=== PATIENT | male | born 1940 | race Caucasian/White ===

== ENCOUNTER 2020-07-05 11:40 | Emergency (ER) | payer MEDICARE, MEDICAID ==
[2020-07-05] MEDS ORDERED: Sodium Chloride 0.9% 10 ML Syringe FLUSH PRN (12:06)
--- NOTE | 2020-07-05 12:06 | EDM.PDOC ---
ED HPI GENERAL MEDICAL PROBLEM - General Chief Complaint: General Stated Complaint: [facility] Time Seen by Provider: 07/05/20 11:48 Source of Information: Reports: Patient, Intermediate Records (report from [facility]), RN Notes Reviewed History Limitations: Reports: No Limitations - History of Present Illness INITIAL COMMENTS - FREE TEXT/NARRATIVE: Patient is a 79-year-old male who presents to the ED for the evaluation of a fall. Patient was brought by [place] ambulance service, and resides at [facility] in [place]. Patient is not a great historian, he does provide some information, like he fell in the elevator, but he denies any sort of ongoing illness that he has been having. Report from [facility] staff states that he has had generalized weakness for the past couple weeks, and has been going to physical therapy for this. He did collapse or fall in the elevator today, but is denying pain anywhere, and is not on any sort of blood thinners, and he was not known to have hit his head. Staff note that he is normally alert and oriented x3. On initial exam, the patient does answer questions when prompted, sometimes he answers questions correctly, and other times he answers with a complete off the cuff answer. 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 He thinks his legs just gave out on him today, noted it was a little bit harder to get up off the floor. He notes lingering problems with his balance, as he has a history of seizures. Patient's not been known to have any fevers or chills, no cough or shortness of breath, or any sort of nausea vomiting or diarrhea. 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 ED EXAM, GENERAL - Physical Exam Exam: See Below Exam Limited By: No Limitations General Appearance: Alert, WD/WN, No Apparent Distress Ears: Normal External Exam Nose: Normal Inspection Throat/Mouth: Normal Inspection Head: Atraumatic, Normocephalic Neck: Normal Inspection Respiratory/Chest: No Respiratory Distress, Lungs Clear, Normal Breath Sounds, No Accessory Muscle Use, Chest Non-Tender Cardiovascular: Normal Peripheral Pulses, Regular Rate, Rhythm, No Murmur Peripheral Pulses: 2+: Radial (L), Radial (R) Extremities: Normal Inspection, Normal Capillary Refill Neurological: Alert, Oriented, Sensory/Motor Deficit (decreased poultry cleaner strength bilaterally, overall generalized weakness noted) Psychiatric: Normal Affect, Normal Mood Skin Exam: Warm, Dry, Intact, Normal Color, No Rash EKG INTERPRETATION EKG Date: 07/05/20 Time: 12:36 Rhythm: NSR (sinus bradycardia) Rate (Beats/Min): 52 [place]: Normal P-Wave: Present (1 AV block) QRS: Normal ST-T: Other (T-wave flattening in lead I and inverted in aVL) QT: Normal Comparison: NA - No Prior EKG EKG Interpretation Comments: No obvious ischemia or acute ST changes noted, reviewed by myself and Dr. Lan. Course - Vital Signs Last Recorded V/S: Last Vital Signs Temp 98.3 F 07/05/20 11:47 Pulse 62 07/05/20 11:47 Resp 18 07/05/20 11:47 BP 137/75 07/05/20 11:47 Pulse Ox 94 L 07/05/20 11:47 - Orders/Labs/Meds Orders: Active Orders 24 hr Category Date Time Status EKG Documentation Completion [RC] STAT Care 07/05/20 11:56 Active Peripheral IV Care [RC] . DIRECTED Care 07/05/20 12:07 Active Chest 2V [CR] Stat Exams 07/05/20 11:55 Taken Sodium Chloride 0.9% [Saline Flush] Med 07/05/20 12:06 Active 10 ml FLUSH ASDIRECTED PRN Peripheral IV Insertion Adult [OM.PC] Routine Oth 07/05/20 12:07 Ordered Medication Orders Sodium Chloride (Saline Flush) 10 ml FLUSH ASDIRECTED PRN PRN Reason: Keep Vein Open Labs: Laboratory Tests 07/05/20 07/05/20 07/05/20 Range/Units 12:23 12:23 13:29 WBC 3.88 L (4.23-9.07) K/mm3 RBC 4.27 L (4.63-6.08) M/mm3 Hgb 12.7 L (13.7-17.5) gm/dl Hct 39.6 L (40.1-51.0) % MCV 92.7 H (79.0-92.2) fl MCH 29.7 (25.7-32.2) pg MCHC 32.1 L (32.2-35.5) g/dl RDW Std Deviation 47.5 H (35.1-43.9) fL Plt Count 180 (163-337) K/mm3 MPV 11.6 (9.4-12.3) fl Neut % (Auto) 66.2 (34.0-67.9) % Lymph % (Auto) 19.1 L (21.8-53.1) % Gibson % (Auto) 11.3 (5.3-12.2) % Eos % (Auto) 2.8 (0.8-7.0) Baso % (Auto) 0.3 (0.1-1.2) % Neut # (Auto) 2.57 (1.78-5.38) K/mm3 Lymph # (Auto) 0.74 L (1.32-3.57) K/mm3 Gibson # (Auto) 0.44 (0.30-0.82) K/mm3 Eos # (Auto) 0.11 (0.04-0.54) K/mm3 Baso # (Auto) 0.01 (0.01-0.08) K/mm3 Sodium 139 (136-145) mEq/L Potassium 4.3 (3.5-5.1) mEq/L Chloride 104 (98-107) mEq/L Carbon Dioxide 30 (21-32) mEq/L Anion Gap 9.3 (5-15) BUN 16 (7-18) mg/dL Creatinine 0.9 (0.7-1.3) mg/dL Est Cr Clr Drug Dosing 65.97 mL/min Estimated GFR (MDRD) > 60 (>60) mL/min BUN/Creatinine Ratio 17.8 (14-18) Glucose 92 (83-115) mg/dL Calcium 8.6 (8.5-10.1) mg/dL Magnesium 1.8 (1.8-2.4) mg/dl Total Bilirubin 0.3 (0.2-1.0) mg/dL AST 23 (15-37) U/L ALT 25 (16-63) U/L Alkaline Phosphatase 120 H (46-116) U/L Troponin I < 0.017 (0.00-0.056) ng/mL Total Protein 6.3 L (6.4-8.2) g/dl Albumin 3.3 L (3.4-5.0) g/dl Globulin 3.0 gm/dL Albumin/Globulin Ratio 1.1 (1-2) Urine Color Yellow (Yellow) Urine Appearance Clear (Clear) Urine pH 7.0 (5.0-8.0) Ur Specific [place] 1.020 (1.005-1.030) Urine Protein Negative (Negative) Urine Glucose (UA) Negative (Negative) Urine Ketones Negative (Negative) Urine Occult Blood Trace-intact H (Negative) Urine Nitrite Negative (Negative) Urine Bilirubin Negative (Negative) Urine Urobilinogen 1.0 (0.2-1.0) Ur Leukocyte Esterase Negative (Negative) Urine RBC 5-10 H (0-5) /hpf Urine WBC 0-5 (0-5) /hpf Ur Squamous Epith Cells 0-5 (0-5) /hpf Urine Bacteria Few (FEW) /hpf Urine Mucus Rare (FEW) /hpf Meds: Medications Generic Name Dose Route Start Last Admin Trade Name Freq PRN Reason Stop Dose Admin Sodium Chloride 10 ml 07/05/20 12:06 Saline Flush FLUSH ASDIRECTED PRN Keep Vein Open - Re-Assessments/Exams Free Text/Narrative Re-Assessment/Exam: 07/05/20 12:14 Patient presents to the ED for the evaluation of a fall, and generalized weakness. Laboratory evaluation be obtained to rule out any electrolyte abnormalities, patient will have a chest x-ray, EKG, along with a urinalysis to rule out further possible infectious processes that would be causing increased weakness. I do believe on exam however the patient is suffering from generalized deconditioning, or aging. 07/05/20 13:07 Chest x-ray is negative for any acute consolidative processes like pneumonia. There is some possible mild atelectasis at the right lung base, and heart is at the upper limits of normal for size. Official radiology read is pending. X- rays were reviewed by myself and Dr. Lan. Labs are fairly unremarkable, white blood cell count is mildly low at 3.88. Metabolic panel demonstrates no electrolyte abnormalities that would be causing weakness. Trop is negative, EKG does not show any sign of acute ST changes. As stated above I do believe the patient suffering from physical deconditioning, however urinalysis is still pending at this time. 07/05/20 14:01 Urine demonstrates a trace amount of cells in his urine, which likely secondary to trauma due to the insertion of the urinary catheter. Patient will be discharged back to [facility] with general recommendations at this time. Departure - Departure Time of Disposition: 14:02 Disposition: Home, Self-Care 01 Condition: Good Clinical Impression: Generalized muscle weakness, Physical deconditioning Fall Qualifiers: Encounter type: initial encounter Qualified Code(s): W19.XXXA - Unspecified fall, initial encounter - Discharge Information *PRESCRIPTION DRUG MONITORING PROGRAM REVIEWED*: No *COPY OF PRESCRIPTION DRUG MONITORING REPORT IN PATIENT LORELEI: No Instructions: Weakness, [id number] Forms: ED Department Discharge Additional Instructions: You were evaluated in the ER today regarding your generalized weakness, and fall x1 today. An extensive work-up was done today to include lab work, chest x-ray, EKG all of this was negative. There is no sign of an infective process causing any sort of weakness or anything that would have attributed to your fall. Your fall is most likely due to physical deconditioning, and the aging process, please continue to work with PT to get stronger at this time. Please return to the ER at any time if your symptoms change or worsen. Sepsis Event Note (ED) - Evaluation Sepsis Screening Result: No Definite Risk - Focused Exam Vital Signs: Vital Signs Temp Pulse Resp BP Pulse Ox 07/05/20 11:47 98.3 F 62 18 137/75 94 L - My Orders Last 24 Hours: My Active Orders 07/05/20 11:55 Chest 2V [CR] Stat 07/05/20 11:56 EKG Documentation Completion [RC] STAT 07/05/20 12:06 Sodium Chloride 0.9% [Saline Flush] 10 ml FLUSH ASDIRECTED PRN 07/05/20 12:07 Peripheral IV Care [RC] . DIRECTED Peripheral IV Insertion Adult [OM.PC] Routine - Assessment/Plan Last 24 Hours: My Active Orders 07/05/20 11:55 Chest 2V [CR] Stat 07/05/20 11:56 EKG Documentation Completion [RC] STAT 07/05/20 12:06 Sodium Chloride 0.9% [Saline Flush] 10 ml FLUSH ASDIRECTED PRN 07/05/20 12:07 Peripheral IV Care [RC] . DIRECTED Peripheral IV Insertion Adult [OM.PC] Routine
--- NOTE | 2020-07-06 12:44 | CR ---
Chest: 2 views of the chest were obtained. Comparison: Prior chest x-ray of 04/24/13. Heart is slightly enlarged. Tortuous thoracic aorta is noted. Slight atelectasis is noted within both lung bases. Lungs otherwise are clear with no acute parenchymal change. Right sided jugular line appears to be present. Bony structures appear osteopenic. Nothing acute is seen. Impression: 1. Slight bibasilar atelectasis. 2. Right jugular line appears to be present. 3. Nothing acute is appreciated. Diagnostic code #2 This report was dictated in MDT
== END 2020-07-05 14:30 | disposition home or self-care (01) ==
LOC: JD.ED 11:40
DX: Z04.3 Encounter for examination and observation following other accident (principal); M62.81 Muscle weakness (generalized); Z72.3 Lack of physical exercise; R56.9 Unspecified convulsions; Z79.899 Other long term (current) drug therapy; W17.89XA Other fall from one level to another, initial encounter
CPT/HCPCS: 36415; 71046; 71046-26; 80053; 81001; 83735; 84484; 85025; 93005; 93010; 99283; 99285-25

== ENCOUNTER 2020-07-09 14:52 | Emergency (ER) | payer MEDICARE, MEDICAID, BC ==
--- NOTE | 2020-07-09 15:24 | EDM.PDOC ---
ED HPI GENERAL MEDICAL PROBLEM - General Chief Complaint: General Stated Complaint: [facility] Time Seen by Provider: 07/09/20 15:21 Source of Information: Reports: Patient History Limitations: Reports: No Limitations - History of Present Illness INITIAL COMMENTS - FREE TEXT/NARRATIVE: 79-year-old male presents to the ED for evaluation of a fall outside. Patient has been falling a lot more recently due to problems with his legs. He is currently in a physical therapy program to try and improve his balance and his stamina due to deconditioning of his lower extremities. By history the patient has benign intracranial hypertension and has bur holes in both posterior aspects of his scalp and left parietal scalp. He states they replaced 45 years ago. He denies any injuries from today's falls. He was evaluated through the ED a few days ago for fall and no ID problems were identified in terms of metabolic abnormalities. He usually walks with the aid of a walker. Not use a cane. 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 She does have a seizure disorder and is currently on Dilantin which he states he has been on for the last 45 years. No recent changes in dosage. Patient is also on primidone or Mysoline 150 mg twice daily as well. Onset: Today, Sudden Onset Date: 07/09/20 Onset Time: 14:00 Duration: Minutes:, Other (No apparent injuries identified.) Location: Reports: Other (No apparent injuries identified.) Quality: Reports: Other (Current falls at place of residence [facility].) Severity: Moderate Improves with: Reports: None Worsens with: Reports: Other (And has chronic problems with his balance and) Context: Denies: Activity, Exercise ( gait due to weakness of the lower extremities.), Lifting, Sick Contact, Trauma, Other Associated Symptoms: Reports: No Other Symptoms. 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 (see below) (1.) - Related Data Allergies Allergy/AdvReac Type Severity Reaction Status Date / Time No Known Allergies Allergy Verified 07/05/20 11:54 Home Meds: Home Meds Phenytoin Sodium Extended [Dilantin] 100 - 150 mg PO BID 07/05/20 [History] Primidone [Mysoline] 250 mg PO BID 08/11/20 [History] lisinopriL [Lisinopril] 20 mg PO DAILY 07/05/20 [History] Phenytoin Sodium Extended [Dilantin] 150 mg PO QPM 07/09/20 [History] Past Medical History HEENT History: Reports: Other (See Below) (blind in left eye) Other HEENT History: blind in left eye, detached retina that occurred after a grand mal convulsion. Cardiovascular History: Reports: Hypertension Neurological History: Reports: Seizure (History of seizure disorder. History of benign intracranial hypertension and has shunts in bur holes in both posterior aspects of his parietal scalp.) - Past Surgical History HEENT Surgical History: Reports: Detached Retina Social & Family History - Living Situation & Occupation Living situation: Reports: Extended Care Facility ([place] assisted [facility]) ED ROS GENERAL - Review of Systems Review Of Systems: See Below Constitutional: Reports: Malaise, Weakness, Fatigue, Other (His weight is been 150 pounds forever.). Denies: Fever, Chills, Decreased Appetite, Weight Loss HEENT: Reports: Glasses, Other (9S left eye) Respiratory: Reports: Shortness of Breath. Denies: Wheezing, Pleuritic Chest Pain, Cough, Sputum Cardiovascular: Reports: Blood Pressure Problem, Dyspnea on Exertion. Denies: Chest Pain, Claudication, Edema, Lightheadedness, Orthopnea Endocrine: Reports: Fatigue (Times) GI/Abdominal: Denies: Constipation, Diarrhea : Reports: Frequency, Other (. X3. Known BPH.) Musculoskeletal: Reports: Joint Pain (Hips knees low back pain.), Other (Difficulty walking due to leg weakness. Uses a walker to aid his gait) Skin: Reports: No Symptoms Neurological: Reports: Difficulty Walking Psychiatric: Reports: No Symptoms Hematologic/Lymphatic: Reports: No Symptoms Immunologic: Reports: No Symptoms ED EXAM, GENERAL - Physical Exam Exam: See Below Exam Limited By: No Limitations General Appearance: Alert, WD/WN, No Apparent Distress, Other (Temperature is 36.6. 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 He states it is like this all the time.). No: Lymphadenopathy (L), Lymphadenopathy (R) Respiratory/Chest: No Respiratory Distress, Lungs Clear, Normal Breath Sounds, No Accessory Muscle Use, Decreased Breath Sounds (Creased breath sounds to the lower 35% of lung puga due to his mild COPD clinically.). No: Rhonchi, Wheezing Cardiovascular: Regular Rate, Rhythm, No Edema, No Gallop, No Murmur, No Rub. No: Normal Peripheral Pulses Peripheral Pulses: 2+: Posterior Tibial (L), Posterior Tibial (R), Dorsalis Pedis (L), Dorsalis Pedis (R), 3+: Carotid (L), Carotid (R) GI/Abdominal: Normal Bowel Sounds, Soft, Non-Tender, No Organomegaly Back Exam: Normal Inspection, Decreased Range of Motion, Paraspinal Tenderness (Stiffness throughout the lumbar spine. Adjacent to the lumbar spine bilaterally.). No: Full Range of Motion Extremities: Other (Patient has marked osteoarthritic changes in both hips with very limited external and internal rotation on both sides. He has arthritic changes in both knees. He walks with a slightly widened gait and shuffling type gait.) Neurological: Alert (No real signs of bradykinesia to suggest Parkinson's disease.), Oriented, CN II-XII Intact, Normal Cognition Psychiatric: Normal Affect, Normal Mood Skin Exam: Warm, Dry, Intact, Normal Color, No Rash EKG INTERPRETATION EKG Date: 07/09/20 Time: 15:33 Rhythm: Other Rate (Beats/Min): 57 Kingsley: Normal P-Wave: Present QRS: Other (Initial poor R wave progression.) ST-T: Other (Wandering baseline leads I to III, aVL and aVF make it difficult to interpret limb leads.) QT: Normal EKG Interpretation Comments: Abnormal ECG Course - Vital Signs Last Recorded V/S: Last Vital Signs Temp 36.6 C 07/09/20 15:04 Pulse 93 07/09/20 15:04 Resp 18 07/09/20 15:04 BP Pulse Ox 93 L 07/09/20 15:04 Orthostatic Blood Pressure [ 145/99 Standing] Orthostatic Blood Pressure [ 141/84 Supine] - Orders/Labs/Meds Orders: Active Orders 24 hr Category Date Time Status EKG Documentation Completion [RC] STAT Care 07/09/20 15:23 Active Orthostatic Vital Signs [RC] ASDIRECTED Care 07/09/20 15:23 Active Head wo Cont [CT] Stat Exams 07/09/20 15:24 Taken PHENYTOIN [REF] Stat Lab 07/09/20 15:35 Received Dextrose 5%-0.9% NaCl [Dextrose 5%-Normal Saline] 1,000 Med 07/09/20 15:30 Active ml IV ASDIRECTED Medication Orders Dextrose/Sodium Chloride (Dextrose 5%-Normal Saline) 1,000 mls @ 250 mls/hr IV ASDIRECTED ONUR Last Admin: 07/09/20 15:38 Dose: 250 mls/hr Documented by: CHANTELLE Labs: Laboratory Tests 07/09/20 07/09/20 07/09/20 Range/Units 15:47 15:47 15:47 WBC 3.52 L (4.23-9.07) K/mm3 RBC 4.45 L (4.63-6.08) M/mm3 Hgb 13.1 L (13.7-17.5) gm/dl Hct 41.2 (40.1-51.0) % MCV 92.6 H (79.0-92.2) fl MCH 29.4 (25.7-32.2) pg MCHC 31.8 L (32.2-35.5) g/dl RDW Std Deviation 47.4 H (35.1-43.9) fL Plt Count 179 (163-337) K/mm3 MPV 11.6 (9.4-12.3) fl Neut % (Auto) 60.0 (34.0-67.9) % Lymph % (Auto) 22.4 (21.8-53.1) % Beadle % (Auto) 13.9 H (5.3-12.2) % Eos % (Auto) 3.1 (0.8-7.0) Baso % (Auto) 0.3 (0.1-1.2) % Neut # (Auto) 2.11 (1.78-5.38) K/mm3 Lymph # (Auto) 0.79 L (1.32-3.57) K/mm3 Beadle # (Auto) 0.49 (0.30-0.82) K/mm3 Eos # (Auto) 0.11 (0.04-0.54) K/mm3 Baso # (Auto) 0.01 (0.01-0.08) K/mm3 ESR 5 (0-15) mm/hr Sodium 139 (136-145) mEq/L Potassium 4.3 (3.5-5.1) mEq/L Chloride 104 (98-107) mEq/L Carbon Dioxide 30 (21-32) mEq/L Anion Gap 9.3 (5-15) BUN 16 (7-18) mg/dL Creatinine 0.9 (0.7-1.3) mg/dL Est Cr Clr Drug Dosing 65.97 mL/min Estimated GFR (MDRD) > 60 (>60) mL/min BUN/Creatinine Ratio 17.8 (14-18) Glucose 101 (83-115) mg/dL Calcium 8.5 (8.5-10.1) mg/dL Magnesium 1.8 (1.8-2.4) mg/dl Total Bilirubin 0.3 (0.2-1.0) mg/dL AST 26 (15-37) U/L ALT 24 (16-63) U/L Alkaline Phosphatase 125 H (46-116) U/L Troponin I < 0.017 (0.00-0.056) ng/mL C-Reactive Protein 1.4 H* (<1.0) mg/dL NT-Pro-B Natriuret Pep (0-450) pg/mL Total Protein 6.6 (6.4-8.2) g/dl Albumin 3.4 (3.4-5.0) g/dl Globulin 3.2 gm/dL Albumin/Globulin Ratio 1.1 (1-2) Urine Color (Yellow) Urine Appearance (Clear) Urine pH (5.0-8.0) Ur Specific [place] (1.005-1.030) Urine Protein (Negative) Urine Glucose (UA) (Negative) Urine Ketones (Negative) Urine Occult Blood (Negative) Urine Nitrite (Negative) Urine Bilirubin (Negative) Urine Urobilinogen (0.2-1.0) Ur Leukocyte Esterase (Negative) Urine RBC (0-5) /hpf Urine WBC (0-5) /hpf Ur Squamous Epith Cells (0-5) /hpf Urine Bacteria (FEW) /hpf Urine Mucus (FEW) /hpf 07/09/20 07/09/20 Range/Units 15:47 17:17 WBC (4.23-9.07) K/mm3 RBC (4.63-6.08) M/mm3 Hgb (13.7-17.5) gm/dl Hct (40.1-51.0) % MCV (79.0-92.2) fl MCH (25.7-32.2) pg MCHC (32.2-35.5) g/dl RDW Std Deviation (35.1-43.9) fL Plt Count (163-337) K/mm3 MPV (9.4-12.3) fl Neut % (Auto) (34.0-67.9) % Lymph % (Auto) (21.8-53.1) % Beadle % (Auto) (5.3-12.2) % Eos % (Auto) (0.8-7.0) Baso % (Auto) (0.1-1.2) % Neut # (Auto) (1.78-5.38) K/mm3 Lymph # (Auto) (1.32-3.57) K/mm3 Beadle # (Auto) (0.30-0.82) K/mm3 Eos # (Auto) (0.04-0.54) K/mm3 Baso # (Auto) (0.01-0.08) K/mm3 ESR (0-15) mm/hr Sodium (136-145) mEq/L Potassium (3.5-5.1) mEq/L Chloride (98-107) mEq/L Carbon Dioxide (21-32) mEq/L Anion Gap (5-15) BUN (7-18) mg/dL Creatinine (0.7-1.3) mg/dL Est Cr Clr Drug Dosing mL/min Estimated GFR (MDRD) (>60) mL/min BUN/Creatinine Ratio (14-18) Glucose (83-115) mg/dL Calcium (8.5-10.1) mg/dL Magnesium (1.8-2.4) mg/dl Total Bilirubin (0.2-1.0) mg/dL AST (15-37) U/L ALT (16-63) U/L Alkaline Phosphatase (46-116) U/L Troponin I (0.00-0.056) ng/mL C-Reactive Protein (<1.0) mg/dL NT-Pro-B Natriuret Pep 132 (0-450) pg/mL Total Protein (6.4-8.2) g/dl Albumin (3.4-5.0) g/dl Globulin gm/dL Albumin/Globulin Ratio (1-2) Urine Color Yellow (Yellow) Urine Appearance Clear (Clear) Urine pH 7.0 (5.0-8.0) Ur Specific [place] 1.020 (1.005-1.030) Urine Protein Negative (Negative) Urine Glucose (UA) Negative (Negative) Urine Ketones Negative (Negative) Urine Occult Blood Negative (Negative) Urine Nitrite Negative (Negative) Urine Bilirubin Negative (Negative) Urine Urobilinogen 1.0 (0.2-1.0) Ur Leukocyte Esterase Negative (Negative) Urine RBC 0-5 (0-5) /hpf Urine WBC Not seen (0-5) /hpf Ur Squamous Epith Cells 0-5 (0-5) /hpf Urine Bacteria Not seen (FEW) /hpf Urine Mucus Not seen (FEW) /hpf Meds: Medications Generic Name Dose Route Start Last Admin Trade Name Freq PRN Reason Stop Dose Admin Dextrose/Sodium Chloride 1,000 mls @ 250 mls/hr 07/09/20 15:30 07/09/20 15:38 Dextrose 5%-Normal Saline IV 250 mls/hr ASDIRECTED ONUR Administration - Radiology Interpretation Free Text/Narrative:: 79-year-old male brought to the ED for evaluation of a fall once again. Patient is having a lot of falls recently according to history. He is debilitated and lost a lot of muscle mass in his lower extremities. He also has benign intracranial hypertension for which she is received shunt placement he 45 years ago in both parietal scalp's. He is also blind in his left eye which contributes to his depth perception knocking him here in the hallway he preferred to hang onto a handrail versus walk without any gait aid. He uses a walker at home. Plan will be a routine lab work and CT head. Chest was done a few days ago in the ED and will be reviewed but will not be repeated. It was reportedly normal. - Re-Assessments/Exams Free Text/Narrative Re-Assessment/Exam: 07/09/20 17:33 Lab test revealed a low white count at 3.52. The differential is 60% neutrophils and 22% lymphocytes. Hemoglobin is 13.1 with hematocrit of 41 .2. MCV is slightly elevated at 92.6. Platelet count is 179,000. Sed rate is 5. Sodium 139 with a potassium of 4.3. Chloride is 104 with a bicarb of 30. Anion gap is 9.3 BUN is 16 with a creatinine of 0.9. GFR is greater than 60. Glucose is 101 with a calcium of 8.5. Magnesium is normal at 1.8. Liver function is normal. Troponin I is less than 0.017. C-reactive protein is 1.4. BNP is 132 total protein is 6.6. Urinalysis is not yet available. 07/09/20 17:33 CT head has been completed and reveals no intracranial hemorrhage. There are patchy areas of diminished attenuation in the periventricular and subcortical white matter, a nonspecific finding thought to most likely reflect chronic microvascular ischemic changes. There is no acute edema, mass-effect or shift of the normal midline structures. The rodríguez-white matter differentiation is preserved. There is no extra-axial fluid collections. The ventricles and sulci are diffusely dilated in keeping with age related atrophy of the brain. On inspection of the scale there are bilateral drainage catheters which enter the skull through the posterior parietal bennett holes. The right-sided catheter terminates superficial to the posterior right parietal lobe and the left-sided catheter terminates further anteriorly. Superficial to the anterior aspect of the left parietal lobe. No acute calvarial fracture is identified. There are bilateral posterior parietal bennett holes along with a left lateral parietal bennett hole. Paranasal sinuses are normally aerated and normal mastoid air cells and middle ear cavities are normal as well. High density material within the left eye or globe appears to be postsurgical in nature. 07/09/20 18:00: Nurse and I got the patient up walking in the hallway and he use the banister to help keep his balance. We did not have his walker with him. He managed fairly well but he has markedly difficulties lifting his legs due to weakness. He would not be able to walk without the aid of a walker. Analysis is now returned and is completely normal as well. Because of his gait difficulties and falls is multifactorial. 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 He is on medications Dilantin and primidone both of which interfere with musculoskeletal function and cognitive function. Phenobarbital level will will be a send out to make sure that he is not in the toxic range as this it would interfere with his ability to keep his balance. 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 He is still on both of the above medications primidone and Dilantin for seizure control. I will leave it up to his personal care physician to discern whether or not weaning him from 1 of these medications particularly the Dilantin to see if he has any breakthrough seizures and truly needs this medication. There are no signs of many any metabolic abnormalities. His abnormalities are that of physical deterioration due to age. I strongly advise physical therapy to continue working with him for balance and lower extremity strengthening exercise programs. Departure - Departure Time of Disposition: 18:37 Disposition: Home, Self-Care 01 Condition: Fair Clinical Impression: Recurrent falls while walking, Benign intracranial hypertension syndrome, Adverse effects of medication, Severe muscle deconditioning, Osteoarthritis of hips, bilateral, Osteoarthritis of knees, bilateral Blindness of left eye Qualifiers: Right eye visual impairment category: right - category 2 Qualified Code(s): H54.3 - Unqualified visual loss, both eyes - Discharge Information *PRESCRIPTION DRUG MONITORING PROGRAM REVIEWED*: Not Applicable *COPY OF PRESCRIPTION DRUG MONITORING REPORT IN PATIENT LORELEI: Not Applicable Instructions: Pseudotumor Cerebri Referrals: Roberto Das MD [Primary Care Provider] - Forms: ED Department Discharge Additional Instructions: Evaluation in the emergency room today in regards to recurrent falls which seem to be progressively worsening over the last several weeks. Fall again today without apparent injury identified. Examination revealed no metabolic abnormalities in his blood to account for musculature weakness. He has a multitude of problems including previous brain injury and development of intracranial hypertension requiring shunting in both bilateral parietal skull drill holes. He requires medication for seizure disorder I primidone and Dilantin. It is perhaps possible to wean him from Dilantin to see if he requires this medication and has no further seizure activity. This may improve his cognitive and mobility. He has advanced osteoarthritic changes in both hips and both knees contributing to his disability walking. He has marked deconditioning of the musculature in his lower extremities for which the physiotherapy program is working on. At this time there is nothing that we have to offer that would make him any safer with walking with anything else other than his walker. Follow-up with his personal care physician as planned. Sepsis Event Note (ED) - Evaluation Sepsis Screening Result: No Definite Risk - Focused Exam Vital Signs: Vital Signs Temp Pulse Resp Pulse Ox 07/09/20 15:04 36.6 C 93 18 93 L - My Orders Last 24 Hours: My Active Orders 07/09/20 15:23 EKG Documentation Completion [RC] STAT Orthostatic Vital Signs [RC] ASDIRECTED 07/09/20 15:24 Head wo Cont [CT] Stat 07/09/20 15:30 Dextrose 5%-0.9% NaCl [Dextrose 5%-Normal Saline] 1,000 ml IV ASDIRECTED 07/09/20 15:35 PHENYTOIN [REF] Stat - Assessment/Plan Last 24 Hours: My Active Orders 07/09/20 15:23 EKG Documentation Completion [RC] STAT Orthostatic Vital Signs [RC] ASDIRECTED 07/09/20 15:24 Head wo Cont [CT] Stat 07/09/20 15:30 Dextrose 5%-0.9% NaCl [Dextrose 5%-Normal Saline] 1,000 ml IV ASDIRECTED 07/09/20 15:35 PHENYTOIN [REF] Stat
[2020-07-09] MEDS ORDERED: Dextrose 5%-0.9% NaCl 1,000 ML IV SCH (15:30)
--- NOTE | 2020-07-10 13:32 | CT ---
Head CT Technique: Multiple axial sections through the brain were obtained. Intravenous contrast was not utilized. Comparison: Prior head CT study of 04/06/11. Findings: Ventricles along with basal cisterns and sulci over the convexities are moderately prominent. Catheters are seen within both cerebral convexities terminating in an extra-axial location. Findings are fairly stable from previous exam. Diminished density is noted within the periventricular and subcortical white matter which is most likely due to small vessel ischemic demyelination change. Abnormal left globe is seen which appears as a chronic finding. Minimal atherosclerotic calcification seen within the carotid siphon. Bone window settings were reviewed which shows no acute calvarial finding. Visualized mastoid sinuses and paranasal sinuses show nothing acute. Impression: 1. Stable appearing intracranial catheters over both convexities. 2. Senescent change as noted above. 3. No acute intracranial abnormality is appreciated. Diagnostic code #2 This report was dictated in MDT I agree with preliminary report from [facility], finalized on 07/09/20, 5:26 PM Central Daylight Time
== END 2020-07-09 19:16 | disposition home or self-care (01) ==
LOC: JD.ED 14:52
DX: G93.2 Benign intracranial hypertension (principal); M17.0 Bilateral primary osteoarthritis of knee; M16.0 Bilateral primary osteoarthritis of hip; H54.3 Unqualified visual loss, both eyes; M62.9 Disorder of muscle, unspecified; T42.0X5A Adverse effect of hydantoin derivatives, initial encounter; I10 Essential (primary) hypertension; Z79.899 Other long term (current) drug therapy; R06.02 Shortness of breath
CPT/HCPCS: 36415; 70450; 80053; 80185; 81001; 83735; 83880; 84484; 85025; 85652; 86140; 93005; 96360; 96361; 99285; J7042; 99284

== ENCOUNTER 2020-08-02 14:02 | Emergency (ER) | payer MEDICARE, MEDICAID ==
[2020-08-02] MEDS ORDERED: Sodium Chloride 0.9% 10 ML Syringe FLUSH PRN (14:32)
--- NOTE | 2020-08-02 14:33 | EDM.PDOC ---
ED HPI GENERAL MEDICAL PROBLEM - General Chief Complaint: Neuro Symptoms/Deficits Stated Complaint: [facility] Time Seen by Provider: 08/02/20 14:24 Source of Information: Reports: Patient, EMS, Detention Records, RN Notes Reviewed - History of Present Illness INITIAL COMMENTS - FREE TEXT/NARRATIVE: 79 yr old male sent to ED for eval of progressive weakness, lethargy. This is reported to have started several weeks ago but worse the last few days. He does have hx of Htn. He is a intermediate resident at the [facility]. No cough, fever or difficulty breathing. He is on dilantin in addition to other meds. It appears a dilantin order was placed today at the [facility] in addition to a few other labs. Pt has no complaints on arrival to ED. Speech is noted to be mildly slurred. 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 Cardiovascular History: Reports: Hypertension Neurological History: Reports: Seizure Other Neuro History: intercranial hypertension - Past Surgical History HEENT Surgical History: Reports: Detached Retina Social & Family History - Tobacco Use Smoking Status *Q: Never Smoker Second Hand Smoke Exposure: No - Caffeine Use Caffeine Use: Reports: None - Recreational Drug Use Recreational Drug Use: No - Living Situation & Occupation Living situation: Reports: Extended Care Facility ([facility]) ED ROS GENERAL - Review of Systems Review Of Systems: See Below Constitutional: Denies: Fever HEENT: Reports: No Symptoms Respiratory: Denies: Shortness of Breath, Cough Cardiovascular: Denies: Chest Pain GI/Abdominal: Denies: Abdominal Pain, Diarrhea, Vomiting Musculoskeletal: Denies: Joint Pain Skin: Denies: Rash Neurological: Reports: Dizziness, Trouble Speaking (slurred speech, unsure what is baseline is), Weakness (generalized weakness) ED EXAM, GENERAL - Physical Exam Exam: See Below General Appearance: Alert, No Apparent Distress Eye Exam: Right Eye: Other (R pupil mid sized, reactive, L eye scarred over) Throat/Mouth: Normal Inspection, Other (no facial droop) Head: No: Facial Swelling Neck: Supple, Other (no JVD) Respiratory/Chest: No Respiratory Distress, Lungs Clear, Normal Breath Sounds Cardiovascular: Regular Rate, Rhythm GI/Abdominal: Soft, Non-Tender Back Exam: No: CVA Tenderness (L), CVA Tenderness (R) Extremities: No: Pedal Edema, Leg Pain, Increased Warmth, Redness Neurological: Alert, Other (Pt has generalized weakness, is not strong arms or legs, but no focal weakness) Skin Exam: Warm, Dry, Normal Color, No Rash EKG INTERPRETATION EKG Date: 08/02/20 Rhythm: NSR Leigh: Normal P-Wave: Present QRS: Normal ST-T: Normal Course - Vital Signs Last Recorded V/S: Last Vital Signs Temp 97.5 F 08/02/20 18:40 Pulse 68 08/02/20 18:40 Resp 16 08/02/20 18:40 BP 118/81 08/02/20 18:40 Pulse Ox 95 08/02/20 18:40 - Orders/Labs/Meds Orders: Active Orders 24 hr Category Date Time Status Insert Sosa Catheter [Insert Urinary Catheter] [OM.PC] Care 08/02/20 16:35 Ordered Stat Peripheral IV Insertion Adult [OM.PC] Stat Oth 08/02/20 14:32 Ordered Labs: Laboratory Tests 08/02/20 08/02/20 08/02/20 Range/Units 14:50 14:50 14:50 WBC 7.03 (4.23-9.07) K/mm3 RBC 4.62 L (4.63-6.08) M/mm3 Hgb 13.7 (13.7-17.5) gm/dl Hct 43.7 (40.1-51.0) % MCV 94.6 H (79.0-92.2) fl MCH 29.7 (25.7-32.2) pg MCHC 31.4 L (32.2-35.5) g/dl RDW Std Deviation 48.6 H (35.1-43.9) fL Plt Count 168 (163-337) K/mm3 MPV 12.5 H (9.4-12.3) fl Neut % (Auto) 69.2 H (34.0-67.9) % Lymph % (Auto) 13.4 L (21.8-53.1) % Lee % (Auto) 14.9 H (5.3-12.2) % Eos % (Auto) 2.1 (0.8-7.0) Baso % (Auto) 0.3 (0.1-1.2) % Neut # (Auto) 4.86 (1.78-5.38) K/mm3 Lymph # (Auto) 0.94 L (1.32-3.57) K/mm3 Lee # (Auto) 1.05 H (0.30-0.82) K/mm3 Eos # (Auto) 0.15 (0.04-0.54) K/mm3 Baso # (Auto) 0.02 (0.01-0.08) K/mm3 Sodium 147 H (136-145) mEq/L Potassium 4.0 (3.5-5.1) mEq/L Chloride 109 H (98-107) mEq/L Carbon Dioxide 31 (21-32) mEq/L Anion Gap 11.0 (5-15) BUN 25 H (7-18) mg/dL Creatinine 0.7 (0.7-1.3) mg/dL Est Cr Clr Drug Dosing 79.23 mL/min Estimated GFR (MDRD) > 60 (>60) mL/min BUN/Creatinine Ratio 35.7 H (14-18) Glucose 102 (83-115) mg/dL Lactic Acid (0.4-2.0) mmol/L Calcium 8.9 (8.5-10.1) mg/dL Total Bilirubin 0.3 (0.2-1.0) mg/dL AST 48 H (15-37) U/L ALT 33 (16-63) U/L Alkaline Phosphatase 131 H (46-116) U/L C-Reactive Protein 5.1 H* (<1.0) mg/dL NT-Pro-B Natriuret Pep (0-450) pg/mL Total Protein 6.8 (6.4-8.2) g/dl Albumin 3.1 L (3.4-5.0) g/dl Globulin 3.7 gm/dL Albumin/Globulin Ratio 0.8 L (1-2) Urine Color (Yellow) Urine Appearance (Clear) Urine pH (5.0-8.0) Ur Specific [place] (1.005-1.030) Urine Protein (Negative) Urine Glucose (UA) (Negative) Urine Ketones (Negative) Urine Occult Blood (Negative) Urine Nitrite (Negative) Urine Bilirubin (Negative) Urine Urobilinogen (0.2-1.0) Ur Leukocyte Esterase (Negative) Urine RBC (0-5) /hpf Urine WBC (0-5) /hpf Ur Squamous Epith Cells (0-5) /hpf Urine Bacteria (FEW) /hpf Urine Mucus (FEW) /hpf 08/02/20 08/02/20 08/02/20 Range/Units 14:50 14:50 16:35 WBC (4.23-9.07) K/mm3 RBC (4.63-6.08) M/mm3 Hgb (13.7-17.5) gm/dl Hct (40.1-51.0) % MCV (79.0-92.2) fl MCH (25.7-32.2) pg MCHC (32.2-35.5) g/dl RDW Std Deviation (35.1-43.9) fL Plt Count (163-337) K/mm3 MPV (9.4-12.3) fl Neut % (Auto) (34.0-67.9) % Lymph % (Auto) (21.8-53.1) % Lee % (Auto) (5.3-12.2) % Eos % (Auto) (0.8-7.0) Baso % (Auto) (0.1-1.2) % Neut # (Auto) (1.78-5.38) K/mm3 Lymph # (Auto) (1.32-3.57) K/mm3 Lee # (Auto) (0.30-0.82) K/mm3 Eos # (Auto) (0.04-0.54) K/mm3 Baso # (Auto) (0.01-0.08) K/mm3 Sodium (136-145) mEq/L Potassium (3.5-5.1) mEq/L Chloride (98-107) mEq/L Carbon Dioxide (21-32) mEq/L Anion Gap (5-15) BUN (7-18) mg/dL Creatinine (0.7-1.3) mg/dL Est Cr Clr Drug Dosing mL/min Estimated GFR (MDRD) (>60) mL/min BUN/Creatinine Ratio (14-18) Glucose (83-115) mg/dL Lactic Acid 1.1 (0.4-2.0) mmol/L Calcium (8.5-10.1) mg/dL Total Bilirubin (0.2-1.0) mg/dL AST (15-37) U/L ALT (16-63) U/L Alkaline Phosphatase (46-116) U/L C-Reactive Protein (<1.0) mg/dL NT-Pro-B Natriuret Pep 67 (0-450) pg/mL Total Protein (6.4-8.2) g/dl Albumin (3.4-5.0) g/dl Globulin gm/dL Albumin/Globulin Ratio (1-2) Urine Color Dark yellow (Yellow) Urine Appearance Clear (Clear) Urine pH 5.5 (5.0-8.0) Ur Specific [place] > or = 1.030 (1.005-1.030) Urine Protein Negative (Negative) Urine Glucose (UA) Negative (Negative) Urine Ketones Negative (Negative) Urine Occult Blood Trace-lysed H (Negative) Urine Nitrite Negative (Negative) Urine Bilirubin Negative (Negative) Urine Urobilinogen 0.2 (0.2-1.0) Ur Leukocyte Esterase Negative (Negative) Urine RBC 0-5 (0-5) /hpf Urine WBC 0-5 (0-5) /hpf Ur Squamous Epith Cells 0-5 (0-5) /hpf Urine Bacteria Few (FEW) /hpf Urine Mucus Moderate H (FEW) /hpf Meds: Medications Discontinued Medications Generic Name Dose Route Start Last Admin Trade Name Freq PRN Reason Stop Dose Admin Sodium Chloride 10 ml 08/02/20 14:32 08/02/20 15:02 Saline Flush FLUSH 10 ml ASDIRECTED PRN Administration Keep Vein Open - Re-Assessments/Exams Free Text/Narrative Re-Assessment/Exam: 08/02/20 19:48 CXR nl, Ua, WBC, other labs all relatively nl, CRP mildly elevated at 5.1. He is reported to have had a neg covid 1 week ago. He has not been coughing, Head CT no acute findings, Have sent back to the [facility]. Departure - Departure Time of Disposition: 17:17 Disposition: Home, Self-Care 01 Condition: Fair Clinical Impression: Generalized weakness - Discharge Information Instructions: Weakness, [id number] Referrals: Lamont Hansen MD [Primary Care Provider] - Forms: ED Department Discharge Additional Instructions: Labs today including WBC, chemistries, Ua were all relatively nl today. CXR was clear. Head CT showed no acute findings. No evidence for acute stroke or infection found today. I see that Dr Hansen has ordered a dilantin level along with other labs. It will be important to make sure that comes back normal. Continue present care for now. Return to ED as needed. Sepsis Event Note (ED) - Evaluation Sepsis Screening Result: No Definite Risk - My Orders Last 24 Hours: My Active Orders 08/02/20 14:32 Peripheral IV Insertion Adult [OM.PC] Stat 08/02/20 16:35 Insert Sosa Catheter [Insert Urinary Catheter] [OM.PC] Stat - Assessment/Plan Last 24 Hours: My Active Orders 08/02/20 14:32 Peripheral IV Insertion Adult [OM.PC] Stat 08/02/20 16:35 Insert Sosa Catheter [Insert Urinary Catheter] [OM.PC] Stat
--- NOTE | 2020-08-02 15:05 | CR ---
Chest: Portable view of the chest was obtained. Comparison: Prior chest x-ray of 04/24/13. Heart is within normal limits for portable technique. Tortuous thoracic aorta is seen. Minimal atelectasis/scarring is seen within the right base. Lungs otherwise are clear. Bony structures are osteopenic. Impression: 1. Findings as noted above. 2. Nothing acute is appreciated. Diagnostic code #2 This report was dictated in MDT
--- NOTE | 2020-08-02 15:10 | CT ---
Head CT Technique: Multiple axial sections through the brain were obtained. Intravenous contrast was not utilized. Comparison: Prior head CT study of 07/09/20. Findings: Ventricles along the basal cisterns and sulci over the convexities are moderately prominent. Diminished density is noted within the periventricular white matter which is felt compatible with small vessel ischemic demyelination change. No evidence of intracranial hemorrhage. No midline shift or mass-effect is seen. Bone window settings were reviewed and shows no acute calvarial abnormality. 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 Visualized paranasal sinuses and mastoid sinuses show nothing acute. No acute calvarial finding is seen. Impression: 1. Senescent change as noted above. Extra-axial shunt catheters are in place. 2. Nothing acute is appreciated on noncontrast head CT study. Diagnostic code #2 This report was dictated in MDT
== END 2020-08-02 18:40 | disposition home or self-care (01) ==
LOC: JD.ED 14:02 → SUPCPDRO 14:02 → JD.ED 18:30
DX: R53.1 Weakness (principal); I10 Essential (primary) hypertension; R56.9 Unspecified convulsions; Z79.899 Other long term (current) drug therapy
CPT/HCPCS: 36415; 70450; 70450-26; 71045; 71045-26; 80053; 81001; 83605; 83880; 85025; 86140; 93005; 93010; 99283; 99285-25

== ENCOUNTER 2020-08-05 10:50 | Inpatient (IN) | payer MEDICARE, BC, MEDICAID ==
[2020-08-05] MEDS ORDERED: Sodium Chloride 0.9% 10 ML Syringe FLUSH PRN (11:14)
[2020-08-05] MEDS ORDERED: Sodium Chloride 0.9% 1,000 ML IV ONE ×2 (11:14→13:33)
--- NOTE | 2020-08-05 11:33 | EDM.PDOC ---
ED HPI GENERAL MEDICAL PROBLEM - General Chief Complaint: General Stated Complaint: [facility] Time Seen by Provider: 08/05/20 11:07 Source of Information: Reports: Patient, Old Records, RN Notes Reviewed History Limitations: Reports: No Limitations - History of Present Illness INITIAL COMMENTS - FREE TEXT/NARRATIVE: Patient is a 79-year-old male who presents to the ED via [place] [facility] for the evaluation of his generalized weakness, and decreased mentation. Patient was last evaluated in this ER roughly 3 days ago, and there were no abnormalities found. He was discharged back to [facility] with comfort. He was admitted there on July 21, and staff reports that he was able to ambulate but has been slowly deteriorating, and not even holding his head up as of today. They note that he was running a fever of 102.0 F yesterday. He received a Dulcolax suppository last night and they reported a watery coffee ground stool. The patient is alert when you talk with him, but he mostly just moderates and does not make any sense when answering questions. I did ask him if he was having pain anywhere he shook his head no, I asked him if he knew why he was here he shook his head no, he has generalized weakness, no focal neurological abnormalities appreciated. His temperature at time of triage is 97.2 F, pulse is 81%, respiratory rate of 18, blood pressure slightly low at 96/69, and O2 sats of 94% on room air. His primary care provider is Dr. Hansen. 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 Cardiovascular History: Reports: Hypertension Neurological History: Reports: Seizure Other Neuro History: intercranial hypertension - Past Surgical History Head Surgeries/Procedures: Reports: Shunt HEENT Surgical History: Reports: Detached Retina Social & Family History - Tobacco Use Smoking Status *Q: Unknown Ever Smoked Second Hand Smoke Exposure: No - Caffeine Use Caffeine Use: Reports: None - Recreational Drug Use Recreational Drug Use: No - Living Situation & Occupation Living situation: Reports: Extended Care Facility ([facility]) ED ROS GENERAL - Review of Systems Review Of Systems: Comprehensive ROS is negative, except as noted in HPI. ED EXAM, GENERAL - Physical Exam Exam: See Below Exam Limited By: No Limitations General Appearance: Alert (pt is alert to questions, and shakes head appropriately but has muttered or garbled speech.), No Apparent Distress Head: Other (slight bruising noted to lateral eye sockets, no facial pain is noted) Respiratory/Chest: No Respiratory Distress, Lungs Clear, Normal Breath Sounds, No Accessory Muscle Use, Chest Non-Tender Cardiovascular: Normal Peripheral Pulses, Regular Rate, Rhythm, No Murmur Peripheral Pulses: 2+: Radial (L), Radial (R) GI/Abdominal: Normal Bowel Sounds, Soft, Non-Tender, No Distention, No Mass Extremities: Normal Inspection, Normal Capillary Refill Neurological: Alert, Normal Cognition (answers questions appropriately with head nods; but has muttered or garbled speech) Psychiatric: Normal Affect, Normal Mood Skin Exam: Warm, Dry, Intact, Normal Color, No Rash, Ecchymosis (to lateral eye sockets) EKG INTERPRETATION EKG Date: 08/05/20 Time: 11:31 Rhythm: NSR Rate (Beats/Min): 77 [place]: Normal P-Wave: Present QRS: Normal ST-T: Normal QT: Normal Comparison: No Change EKG Interpretation Comments: No obvious ischemia or acute ST changes noted, reviewed by myself and Dr. Ortiz. Course - Vital Signs Last Recorded V/S: Last Vital Signs Temp 97.2 F 08/05/20 11:04 Pulse 81 08/05/20 11:04 Resp 18 08/05/20 11:04 BP 133/66 08/05/20 13:09 Pulse Ox 94 L 08/05/20 11:04 - Orders/Labs/Meds Orders: Active Orders 24 hr Category Date Time Status Blood Pressure Mgt: Sepsis [RC] Q15MX2 Care 08/05/20 11:15 Active EKG Documentation Completion [RC] STAT Care 08/05/20 11:26 Active CULTURE BLOOD [BC] Stat Lab 08/05/20 12:03 Received CULTURE BLOOD [BC] Stat Lab 08/05/20 12:20 Received CULTURE URINE [RM] Routine Lab 08/05/20 13:06 Ordered Sodium Chloride 0.9% [Normal Saline] 1,000 ml Med 08/05/20 13:33 Ordered IV ONETIME Sodium Chloride 0.9% [Normal Saline] 100 ml Med 08/05/20 13:45 Active IV ASDIRECTED Sodium Chloride 0.9% [Saline Flush] Med 08/05/20 11:14 Active 10 ml FLUSH ASDIRECTED PRN Blood Culture x2 Reflex Set [OM.PC] Stat Oth 08/05/20 11:14 Ordered Saline Lock Insert [OM.PC] Stat Oth 08/05/20 11:14 Ordered Medication Orders Sodium Chloride (Normal Saline) 1,000 mls @ 200 mls/hr IV ONETIME ONE Stop: 08/05/20 18:32 Last Admin: 08/05/20 14:01 Dose: 200 mls/hr Documented by: RIKKI Sodium Chloride (Normal Saline) 100 mls @ 75 mls/hr IV ASDIRECTED ONUR Last Admin: 08/05/20 13:45 Dose: 75 mls/hr Documented by: KRISHAN Sodium Chloride (Saline Flush) 10 ml FLUSH ASDIRECTED PRN PRN Reason: Keep Vein Open Last Admin: 08/05/20 11:21 Dose: 10 ml Documented by: RIKKI Labs: Laboratory Tests 08/05/20 08/05/20 08/05/20 Range/Units 10:56 10:56 10:56 WBC 13.46 H (4.23-9.07) K/mm3 RBC 5.13 (4.63-6.08) M/mm3 Hgb 15.1 (13.7-17.5) gm/dl Hct 48.8 (40.1-51.0) % MCV 95.1 H (79.0-92.2) fl MCH 29.4 (25.7-32.2) pg MCHC 30.9 L (32.2-35.5) g/dl RDW Std Deviation 50.5 H (35.1-43.9) fL Plt Count 192 (163-337) K/mm3 MPV 12.4 H (9.4-12.3) fl Neutrophils % (Manual) 83 H (40-60) % Band Neutrophils % 1 (0-10) % Lymphocytes % (Manual) 11 L (20-40) % Atypical Lymphs % 0 % Monocytes % (Manual) 5 (2-10) % Eosinophils % (Manual) 0 L (0.8-7.0) % Basophils % (Manual) 0 L (0.2-1.2) Platelet Estimate Adequate RBC Morph Comment Normal PT 11.6 (9.7-11.7) SECONDS INR 1.09 D-Dimer, Quantitative (0.19-0.50) mg/L Sodium 148 H (136-145) mEq/L Potassium 4.4 (3.5-5.1) mEq/L Chloride 109 H (98-107) mEq/L Carbon Dioxide 32 (21-32) mEq/L Anion Gap 11.4 (5-15) BUN 48 H (7-18) mg/dL Creatinine 1.2 (0.7-1.3) mg/dL Est Cr Clr Drug Dosing 49.48 mL/min Estimated GFR (MDRD) 59 (>60) mL/min BUN/Creatinine Ratio 40.0 H (14-18) Glucose 156 H (83-115) mg/dL Lactic Acid (0.4-2.0) mmol/L Calcium 9.1 (8.5-10.1) mg/dL Magnesium (1.8-2.4) mg/dl Ferritin (26-388) ng/ml Total Bilirubin 0.5 (0.2-1.0) mg/dL AST 35 (15-37) U/L ALT 34 (16-63) U/L Alkaline Phosphatase 123 H (46-116) U/L Lactate Dehydrogenase (85-227) U/L Troponin I (0.00-0.056) ng/mL C-Reactive Protein 17.5 H* (<1.0) mg/dL Total Protein 7.2 (6.4-8.2) g/dl Albumin 3.1 L (3.4-5.0) g/dl Globulin 4.1 gm/dL Albumin/Globulin Ratio 0.8 L (1-2) Urine Color (Yellow) Urine Appearance (Clear) Urine pH (5.0-8.0) Ur Specific Ray (1.005-1.030) Urine Protein (Negative) Urine Glucose (UA) (Negative) Urine Ketones (Negative) Urine Occult Blood (Negative) Urine Nitrite (Negative) Urine Bilirubin (Negative) Urine Urobilinogen (0.2-1.0) Ur Leukocyte Esterase (Negative) Urine RBC (0-5) /hpf Urine WBC (0-5) /hpf Ur Squamous Epith Cells (0-5) /hpf Amorphous Sediment (NOT SEEN) /hpf Urine Bacteria (FEW) /hpf Urine Mucus (FEW) /hpf SARS Virus RNA (PCR) (NEGATIVE) 08/05/20 08/05/20 08/05/20 Range/Units 10:56 10:56 10:56 WBC (4.23-9.07) K/mm3 RBC (4.63-6.08) M/mm3 Hgb (13.7-17.5) gm/dl Hct (40.1-51.0) % MCV (79.0-92.2) fl MCH (25.7-32.2) pg MCHC (32.2-35.5) g/dl RDW Std Deviation (35.1-43.9) fL Plt Count (163-337) K/mm3 MPV (9.4-12.3) fl Neutrophils % (Manual) (40-60) % Band Neutrophils % (0-10) % Lymphocytes % (Manual) (20-40) % Atypical Lymphs % % Monocytes % (Manual) (2-10) % Eosinophils % (Manual) (0.8-7.0) % Basophils % (Manual) (0.2-1.2) Platelet Estimate RBC Morph Comment PT (9.7-11.7) SECONDS INR D-Dimer, Quantitative 3.39 H (0.19-0.50) mg/L Sodium (136-145) mEq/L Potassium (3.5-5.1) mEq/L Chloride (98-107) mEq/L Carbon Dioxide (21-32) mEq/L Anion Gap (5-15) BUN (7-18) mg/dL Creatinine (0.7-1.3) mg/dL Est Cr Clr Drug Dosing mL/min Estimated GFR (MDRD) (>60) mL/min BUN/Creatinine Ratio (14-18) Glucose (83-115) mg/dL Lactic Acid (0.4-2.0) mmol/L Calcium (8.5-10.1) mg/dL Magnesium 2.4 (1.8-2.4) mg/dl Ferritin 285 (26-388) ng/ml Total Bilirubin (0.2-1.0) mg/dL AST (15-37) U/L ALT (16-63) U/L Alkaline Phosphatase (46-116) U/L Lactate Dehydrogenase 206 (85-227) U/L Troponin I < 0.017 (0.00-0.056) ng/mL C-Reactive Protein (<1.0) mg/dL Total Protein (6.4-8.2) g/dl Albumin (3.4-5.0) g/dl Globulin gm/dL Albumin/Globulin Ratio (1-2) Urine Color (Yellow) Urine Appearance (Clear) Urine pH (5.0-8.0) Ur Specific Ray (1.005-1.030) Urine Protein (Negative) Urine Glucose (UA) (Negative) Urine Ketones (Negative) Urine Occult Blood (Negative) Urine Nitrite (Negative) Urine Bilirubin (Negative) Urine Urobilinogen (0.2-1.0) Ur Leukocyte Esterase (Negative) Urine RBC (0-5) /hpf Urine WBC (0-5) /hpf Ur Squamous Epith Cells (0-5) /hpf Amorphous Sediment (NOT SEEN) /hpf Urine Bacteria (FEW) /hpf Urine Mucus (FEW) /hpf SARS Virus RNA (PCR) (NEGATIVE) 08/05/20 08/05/20 08/05/20 Range/Units 12:03 12:20 12:25 WBC (4.23-9.07) K/mm3 RBC (4.63-6.08) M/mm3 Hgb (13.7-17.5) gm/dl Hct (40.1-51.0) % MCV (79.0-92.2) fl MCH (25.7-32.2) pg MCHC (32.2-35.5) g/dl RDW Std Deviation (35.1-43.9) fL Plt Count (163-337) K/mm3 MPV (9.4-12.3) fl Neutrophils % (Manual) (40-60) % Band Neutrophils % (0-10) % Lymphocytes % (Manual) (20-40) % Atypical Lymphs % % Monocytes % (Manual) (2-10) % Eosinophils % (Manual) (0.8-7.0) % Basophils % (Manual) (0.2-1.2) Platelet Estimate RBC Morph Comment PT (9.7-11.7) SECONDS INR D-Dimer, Quantitative (0.19-0.50) mg/L Sodium (136-145) mEq/L Potassium (3.5-5.1) mEq/L Chloride (98-107) mEq/L Carbon Dioxide (21-32) mEq/L Anion Gap (5-15) BUN (7-18) mg/dL Creatinine (0.7-1.3) mg/dL Est Cr Clr Drug Dosing mL/min Estimated GFR (MDRD) (>60) mL/min BUN/Creatinine Ratio (14-18) Glucose (83-115) mg/dL Lactic Acid 1.5 (0.4-2.0) mmol/L Calcium (8.5-10.1) mg/dL Magnesium (1.8-2.4) mg/dl Ferritin (26-388) ng/ml Total Bilirubin (0.2-1.0) mg/dL AST (15-37) U/L ALT (16-63) U/L Alkaline Phosphatase (46-116) U/L Lactate Dehydrogenase (85-227) U/L Troponin I (0.00-0.056) ng/mL C-Reactive Protein (<1.0) mg/dL Total Protein (6.4-8.2) g/dl Albumin (3.4-5.0) g/dl Globulin gm/dL Albumin/Globulin Ratio (1-2) Urine Color Dark yellow (Yellow) Urine Appearance Clear (Clear) Urine pH 6.0 (5.0-8.0) Ur Specific Ray > or = 1.030 (1.005-1.030) Urine Protein Trace H (Negative) Urine Glucose (UA) Negative (Negative) Urine Ketones Negative (Negative) Urine Occult Blood Trace-intact H (Negative) Urine Nitrite Positive H (Negative) Urine Bilirubin 2+ H (Negative) Urine Urobilinogen 1.0 (0.2-1.0) Ur Leukocyte Esterase Negative (Negative) Urine RBC 5-10 H (0-5) /hpf Urine WBC 0-5 (0-5) /hpf Ur Squamous Epith Cells 0-5 (0-5) /hpf Amorphous Sediment Few H (NOT SEEN) /hpf Urine Bacteria Many H (FEW) /hpf Urine Mucus Not seen (FEW) /hpf SARS Virus RNA (PCR) Negative (NEGATIVE) Meds: Medications Generic Name Dose Route Start Last Admin Trade Name Douglas PRN Reason Stop Dose Admin Sodium Chloride 1,000 mls @ 200 mls/hr 08/05/20 13:33 08/05/20 14:01 Normal Saline IV 08/05/20 18:32 200 mls/hr ONETIME ONE Administration Sodium Chloride 100 mls @ 75 mls/hr 08/05/20 13:45 08/05/20 13:45 Normal Saline IV 75 mls/hr ASDIRECTED ONUR Administration Sodium Chloride 10 ml 08/05/20 11:14 08/05/20 11:21 Saline Flush FLUSH 10 ml ASDIRECTED PRN Administration Keep Vein Open Discontinued Medications Generic Name Dose Route Start Last Admin Trade Name Douglas PRN Reason Stop Dose Admin Sodium Chloride 1,000 mls @ 999 mls/hr 08/05/20 11:14 08/05/20 11:21 Normal Saline IV 08/05/20 12:14 999 mls/hr BOLUS ONE Administration Protocol Ceftriaxone Sodium 2 gm/ 100 mls @ 200 mls/hr 08/05/20 13:06 08/05/20 13:27 Sodium Chloride IV 08/05/20 13:35 200 mls/hr ONETIME ONE Administration Iopamidol 100 ml 08/05/20 13:44 08/05/20 13:45 Isovue-370 (76%) IVPUSH 08/05/20 13:45 100 ml ONETIME ONE Administration - Re-Assessments/Exams Free Text/Narrative Re-Assessment/Exam: 08/05/20 11:33 Patient presents to the ED for the evaluation of his generalized weakness decreased mentation. Labs will be obtained along with EKG, troponin, urinalysis for further evaluation. Unsure as to what has happened with him. I evaluated him 1 month ago, and he was alert and able to answer questions appropriately. 08/05/20 12:25 Patient's labs have started to return, his white blood cell count is elevated at 13.46 with 83% neutrophils and 1 band, which is an interval change from labs done 3 days ago. D-dimer is also elevated at 3.39. CTA of his chest will be performed as his creatinine is within normal limits at 1.2 and his GFR is 59. Sodium mildly elevated 148, BUN is elevated at 48, troponin is undetectably low, CRP is markedly elevated from 3 days ago to 17.5 as well. Ferritin is within normal limits, LDH is within normal limits. There is still a few labs pending at this time head CT showed no acute intracranial abnormalities, chest x-ray was also negative for any acute abnormalities. 08/05/20 13:10 The nurse reports that the patient had a bowel movement at the bedside, and it was brown and normal looking, no sign of black tarry stools. Patient's urinalysis did come back and is nitrite positive would be suggestive of UTI in nature. Patient will be started on 2 g Rocephin. CTA is pending until we can get the coronavirus test back and resulted. This should be done in the next few minutes. 08/05/20 14:26 CTA has been done, and do demonstrate small filling defects within the distal main, segmental, and subsegmental anterior branch of the right lower pulmonary artery. With no other findings of pulmonary embolus seen. There is bibasilar atelectasis worse on the right side. No evidence of pneumonia or other consolidation type process. Discussed the patient's course with Dr. Olson, she will be over to evaluate the patient for possible hospital admission at this time. Departure - Departure Time of Disposition: 14:30 Disposition: Admitted As Inpatient 67 Condition: Fair Clinical Impression: Mental status, decreased, Generalized weakness, Pulmonary embolus, right UTI (urinary tract infection) Qualifiers: Urinary tract infection type: acute cystitis Hematuria presence: with hematuria Qualified Code(s): N30.01 - Acute cystitis with hematuria - Discharge Information *PRESCRIPTION DRUG MONITORING PROGRAM REVIEWED*: No *COPY OF PRESCRIPTION DRUG MONITORING REPORT IN PATIENT LORELEI: No Referrals: Lamont Hansen MD [Primary Care Provider] - Forms: ED Department Discharge Sepsis Event Note (ED) - Evaluation Sepsis Screening Result: No Definite Risk - Focused Exam Vital Signs: Vital Signs Temp Pulse Resp BP Pulse Ox 08/05/20 13:09 133/66 08/05/20 12:40 122/63 08/05/20 11:04 97.2 F 81 18 96/69 94 L - My Orders Last 24 Hours: My Active Orders 08/05/20 11:14 Sodium Chloride 0.9% [Saline Flush] 10 ml FLUSH ASDIRECTED PRN Blood Culture x2 Reflex Set [OM.PC] Stat Saline Lock Insert [OM.PC] Stat 08/05/20 11:15 Blood Pressure Mgt: Sepsis [RC] Q15MX2 08/05/20 11:26 EKG Documentation Completion [RC] STAT 08/05/20 12:03 CULTURE BLOOD [BC] Stat 08/05/20 12:20 CULTURE BLOOD [BC] Stat 08/05/20 13:06 CULTURE URINE [RM] Routine 08/05/20 13:33 Sodium Chloride 0.9% [Normal Saline] 1,000 ml IV ONETIME 08/05/20 13:45 Sodium Chloride 0.9% [Normal Saline] 100 ml IV ASDIRECTED - Assessment/Plan Last 24 Hours: My Active Orders 08/05/20 11:14 Sodium Chloride 0.9% [Saline Flush] 10 ml FLUSH ASDIRECTED PRN Blood Culture x2 Reflex Set [OM.PC] Stat Saline Lock Insert [OM.PC] Stat 08/05/20 11:15 Blood Pressure Mgt: Sepsis [RC] Q15MX2 08/05/20 11:26 EKG Documentation Completion [RC] STAT 08/05/20 12:03 CULTURE BLOOD [BC] Stat 08/05/20 12:20 CULTURE BLOOD [BC] Stat 08/05/20 13:06 CULTURE URINE [RM] Routine 08/05/20 13:33 Sodium Chloride 0.9% [Normal Saline] 1,000 ml IV ONETIME 08/05/20 13:45 Sodium Chloride 0.9% [Normal Saline] 100 ml IV ASDIRECTED
--- NOTE | 2020-08-05 12:11 | CR ---
Chest: Full view of the chest was obtained. Comparison: Prior chest x-ray of 08/02/20. Heart size is normal. Tortuous thoracic aorta is seen. Lungs are clear with no acute parenchymal change. Bony structures are osteopenic. Impression: 1. Nothing acute is appreciated on portable chest x-ray. Diagnostic code #1 This report was dictated in MDT
--- NOTE | 2020-08-05 12:13 | CT ---
Head CT Technique: Multiple axial sections through the brain were obtained. Intravenous contrast was not utilized. Comparison: Prior head CT study of 08/02/20. Findings: Ventricles along with basal cisterns and sulci over the convexities are moderately prominent. Diminished density is noted within the periventricular white matter compatible with small vessel ischemic demyelination change. Atrophy includes the cerebellum. No evidence of intracranial hemorrhage. No midline shift or mass-effect is appreciated. 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 Bone window settings were reviewed. Visualized mastoid sinuses and visualized paranasal sinuses show nothing acute. No acute calvarial finding is seen. Bilateral subdural catheters are seen. Impression: 1. Senescent change as noted above. Catheters are seen on both sides which are extra-axial in location and stable. 2. No acute intracranial abnormality is appreciated. Diagnostic code #2 This report was dictated in MDT
[2020-08-05] MEDS ORDERED: cefTRIAXone 2 GM in Sodium Chloride 0.9% 100 ML IV ONE (13:06)
[2020-08-05] MEDS ORDERED: Iopamidol 755 Mg/ML 100 ML Bottle IVPUSH ONE (13:44)
[2020-08-05] MEDS ORDERED: Sodium Chloride 0.9% 100 ML IV SCH (13:45)
--- NOTE | 2020-08-05 14:08 | CT ---
CT chest Technique: Multiple axial sections through the chest were obtained. Intravenous contrast was utilized. Findings: Small filling defects are seen within the distal main, segmental and subsegmental anterior branch of the right lower pulmonary artery. No other findings of pulmonary embolism are seen. Aorta shows no aneurysm. Atherosclerotic calcification is noted within the thoracic aorta. Mediastinum and hilar regions show no adenopathy. No pericardial thickening is seen. Several small low density lesions are seen within the liver most likely relating to small cysts. Increased density within the right lung base is seen. Lesser density within the left lung base is noted. Findings most likely represent atelectasis. Slight scarring is noted within both lung apices. Impression: 1. Several small pulmonary emboli on the right side. 2. Bibasilar atelectasis worse on the right side. 3. Other findings believed to be incidental. Diagnostic code #5 This report was dictated in MDT
[2020-08-05] MEDS ORDERED: Acetaminophen 325 MG Tab PO PRN (14:48)
[2020-08-05] MEDS ORDERED: Ondansetron 4 MG/2 ML SDV IV PRN (14:48)
[2020-08-05] MEDS ORDERED: cefTRIAXone 1 GM in Sodium Chloride 0.9% 100 ML IV SCH (15:00)
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
[2020-08-05] MEDS ORDERED: Phenytoin 100 MG Cap.ER PO SCH (18:00)
[2020-08-05] MEDS: Phenytoin 30 MG Cap.ER PO SCH (18:56)
[2020-08-05] MEDS: Lactated Ringers 1,000 ML IV SCH (20:19)
[2020-08-05] MEDS: Enoxaparin 80 MG/0.8 ML Syringe SUBCUT SCH (20:22)
[2020-08-05] MEDS: Primidone 250 MG Tab PO SCH (20:25)
[2020-08-06] MEDS: Enoxaparin 80 MG/0.8 ML Syringe SUBCUT SCH (08:38)
[2020-08-06] MEDS: Primidone 250 MG Tab PO SCH ×2 (08:40→22:25)
[2020-08-06] MEDS: Phenytoin 100 MG Cap.ER PO SCH ×2 (08:40→17:35)
[2020-08-06] MEDS: Lactated Ringers 1,000 ML IV SCH (09:37)
--- NOTE | 2020-08-06 09:56 | PCM.PN ---
- General Info Date of Service: 08/06/20 Subjective Update: Slept okay Is tolerating diet No reports from nursing - Patient Data Vitals - Most Recent: Last Vital Signs Temp 99.0 F 08/06/20 08:09 Pulse 76 08/06/20 09:01 Resp 18 08/06/20 08:09 BP 97/57 L 08/06/20 08:11 Pulse Ox 92 L 08/06/20 09:01 Weight - Most Recent: 65.68 kg - Exam General: Alert, Other (Mumbling and incomprehensible) HEENT: Mucous Membr. Moist/[place] Neck: Supple, Trachea Midline, No JVD, No Thyromegaly Lungs: Decreased Breath Sounds, Crackles. No: Rales, Rhonchi, Rub, Stridor, Wheezing Cardiovascular: Regular Rate, Regular Rhythm. No: Murmurs, Gallops, Rubs GI/Abdominal Exam: Normal Bowel Sounds, Soft, Non-Tender. No: Distended, Guarding, Rigid, Rebound Extremities: Normal Inspection, No Pedal Edema, Slow Capillary Refill Peripheral Pulses: 2+: Radial (L), Radial (R) Skin: Dry, Cool Sepsis Event Note - Evaluation Sepsis Screening Result: No Definite Risk - Problem List & Annotations (1) UTI (urinary tract infection) SNOMED Code(s): 12655501 Code(s): N39.0 - URINARY TRACT INFECTION, SITE NOT SPECIFIED Status: Acute Priority: High Current Visit: No Qualifiers: Urinary tract infection type: acute cystitis Hematuria presence: with hematuria Qualified Code(s): N30.01 - Acute cystitis with hematuria (2) Hypoalbuminemia SNOMED Code(s): 880194932 Code(s): E88.09 - OTH DISORDERS OF PLASMA-PROTEIN METABOLISM, NEC Status: Acute Current Visit: Yes (3) Blindness of left eye SNOMED Code(s): 292016767 Code(s): H54.40 - BLINDNESS, ONE EYE, UNSPECIFIED EYE Status: Chronic Priority: Low Current Visit: No Qualifiers: Right eye visual impairment category: right - category 2 Qualified Code(s): H54.3 - Unqualified visual loss, both eyes (4) Fall SNOMED Code(s): 1102176, 443509109 Code(s): W19.XXXA - UNSPECIFIED FALL, INITIAL ENCOUNTER Status: Acute C urrent Visit: No Qualifiers: Encounter type: initial encounter Qualified Code(s): W19.XXXA - Unspecified fall, initial encounter (5) Generalized muscle weakness SNOMED Code(s): 54423797, 97898265 Code(s): M62.81 - MUSCLE WEAKNESS (GENERALIZED) Status: Acute Current Visit: No (6) History of seizures SNOMED Code(s): 021526478 Code(s): Z87.898 - PERSONAL HISTORY OF OTHER SPECIFIED CONDITIONS Status: Chronic Priority: Medium Current Visit: No (7) Hypertension SNOMED Code(s): 78979318 Code(s): I10 - ESSENTIAL (PRIMARY) HYPERTENSION Status: Chronic Priority: Medium Current Visit: No Qualifiers: Hypertension type: unspecified Qualified Code(s): I10 - Essential (primary) hypertension (8) Physical deconditioning SNOMED Code(s): 63357780529798 Code(s): R53.81 - OTHER MALAISE Status: Acute Current Visit: No (9) Pulmonary embolus, right SNOMED Code(s): 44042708 Code(s): I26.99 - OTHER PULMONARY EMBOLISM WITHOUT ACUTE COR PULMONALE Status: Acute Priority: High Current Visit: No (10) Recurrent falls while walking SNOMED Code(s): 374687458, 597901077 Code(s): R29.6 - REPEATED FALLS Status: Acute Current Visit: No (11) Severe muscle deconditioning SNOMED Code(s): 329944656 Code(s): R29.898 - OTH SYMPTOMS AND SIGNS INVOLVING THE MUSCULOSKELETAL SYSTEM Status: Chronic Priority: Medium Current Visit: No (12) Epilepsy SNOMED Code(s): 03271863 Code(s): G40.909 - EPILEPSY, UNSP, NOT INTRACTABLE, WITHOUT STATUS EPILEPTICUS Status: Acute Current Visit: Yes (13) Altered mental status SNOMED Code(s): 139977745 Code(s): R41.82 - ALTERED MENTAL STATUS, UNSPECIFIED Status: Acute Current Visit: Yes (14) Thrombocytopenia SNOMED Code(s): 295425151 Code(s): D69.6 - THROMBOCYTOPENIA, UNSPECIFIED Status: Acute Current Visit: Yes (15) Lymphopenia Status: Acute Current Visit: Yes (16) Hypernatremia SNOMED Code(s): 097981747 Code(s): E87.0 - HYPEROSMOLALITY AND HYPERNATREMIA Status: Acute Current Visit: Yes (17) Hyperchloremia SNOMED Code(s): 25530582 Code(s): E87.8 - OTH DISORDERS OF ELECTROLYTE AND FLUID BALANCE, NEC Status: Acute Current Visit: Yes (18) Dysphagia SNOMED Code(s): 15959623, 515044566 Code(s): R13.10 - DYSPHAGIA, UNSPECIFIED Status: Acute Current Visit: Yes - Problem List Review Problem List Initiated/Reviewed/Updated: Yes - Assessment Assessment:: 08/05/20 79 yo male presents to ED via [place] [facility] for worsening confusion, fever, and generalized weakness Also note a history of coffee ground stools at SNF In ED patient will nod yes or no but mumbles incomprehensive answers to questions UA shows UTI Sepsis criteria: UIT, Afebrile in ED, Leukocytosis, Not tachypneic or tachycardic Does not meet sepsis criteria Labs: WBC 13.46 Hgb 15.1 Neutrophils 83% Sodium 148 Potassium 4.4 Creatinine 1.2 GFR 59 CRP 17.5 D-Dimer 3.39 Lactic acid 1.5 Urine cultures and blood cultures ordered Started on rocephin in ED - continue IV 1L bolus given in ED PLAN IV fluids as ordered PRN antiemetics Tylenol for fevers Continue IV Rocephin Urine cultures and blood cultures pending PT/OT CM/SW for discharge planning NPO for now until nursing swallow screen Bedrest for now Phenytoin level pending Lovenox 1mg/kg No acute concerns 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 Hold lisinopril for now Continue home phenytoin and primidone Check phenytoin level 08/06/20 No complaints overnight Vital signs: Blood pressure: 97-1 128/47 240 T-max 99 degrees Heart rate: 78-94 Pulse ox greater than 92% on room air Lab results WBC down from 13.46-11.42 Platelets down from 190-262 Lymphocytes down from 1346-920 Sodium up from 148 253 Chloride up from 109-117 GFR up from 59 to greater than 60 Water deficit 2,790 mL's - Plan Plan:: UTI (urinary tract infection) Thrombocytopenia/Lymphopenia Rocephin day 2 Follow-up on cultures from admission Discontinue IV fluids once tolerating p.o. Tylenol PRN for fever Trend temperature and panculture if febrile Pulmonary embolus, right Discontinue Lovenox Start Xarelto Dysphagia Continue dysphagia diet Continue speech therapy Fall Altered mental status Generalized muscle weakness Severe muscle deconditioning Recurrent falls while walking Hypoalbuminemia Prealbumin level Vitamin levels Dietary consult Epilepsy Continue phenytoin and primidone Hypernatremia Hyperchloremia D5LR 1L bolus D5LR at 125ml/hr Hypertension Continue to hold lisinopril CODE STATUS: DNR/DNI PROPHYLAXIS DVT: Xarelto GI: Not indicated DISPOSITION: Patient will remain admitted for anticoagulation, fluid restriction stabilize electrolytes and vital signs monitored sedation as well as PT OT evaluation.
[2020-08-06] MEDS: cefTRIAXone 1 GM in Sodium Chloride 0.9% 100 ML IV SCH (16:34)
[2020-08-06] MEDS: Phenytoin 30 MG Cap.ER PO SCH (17:35)
[2020-08-06] MEDS ORDERED: Dextrose 5%-Lactated Ringers 1,000 ML IV SCH (17:45)
[2020-08-06] MEDS: Dextrose 5%-Lactated Ringers 1,000 ML IV SCH (19:12)
[2020-08-06] MEDS: Rivaroxaban 15 MG Tab PO SCH (22:25)
[2020-08-07] MEDS: Dextrose 5%-Lactated Ringers 1,000 ML IV SCH ×2 (04:30→21:22)
[2020-08-07] MEDS: Phenytoin 100 MG Cap.ER PO SCH ×2 (08:23→17:29)
[2020-08-07] MEDS: Rivaroxaban 15 MG Tab PO SCH ×2 (08:23→21:21)
[2020-08-07] MEDS: Primidone 250 MG Tab PO SCH ×2 (08:23→21:21)
--- NOTE | 2020-08-07 09:31 | PCM.PN ---
- General Info Date of Service: 08/07/20 Subjective Update: 1 bowel movement this morning, no longer loose Yesterday had 4 bowel movements Slept through the night Is eating about 50% more than yesterday Is on room air - Patient Data Vitals - Most Recent: Last Vital Signs Temp 98.6 F 08/07/20 05:40 Pulse 80 08/07/20 05:40 Resp 15 08/07/20 05:40 BP 104/71 08/07/20 05:40 Pulse Ox 96 08/07/20 05:40 Weight - Most Recent: 67.54 kg - Exam General: Cooperative, No Acute Distress, Lethargic HEENT: Mucous Membr. Moist/[place] Neck: Supple, Trachea Midline, No JVD, No Thyromegaly, +2 Carotid Pulse wo Bruit. No: Lymphadenopathy Lungs: Clear to Auscultation, Normal Respiratory Effort, Decreased Breath Sounds. No: Crackles, Rales, Rhonchi, Rub, Stridor, Wheezing Cardiovascular: Regular Rate, Regular Rhythm. No: Murmurs, Gallops, Rubs GI/Abdominal Exam: Normal Bowel Sounds, Soft, Non-Tender. No: Distended, Guarding, Rigid, Rebound Extremities: Normal Inspection Peripheral Pulses: 2+: Radial (L), Radial (R) Skin: Warm, Dry Neurological: No New Focal Deficit Sepsis Event Note - Evaluation Sepsis Screening Result: No Definite Risk - Problem List & Annotations (1) UTI (urinary tract infection) SNOMED Code(s): 20241044 Code(s): N39.0 - URINARY TRACT INFECTION, SITE NOT SPECIFIED Status: Acute Priority: High Current Visit: No Qualifiers: Urinary tract infection type: acute cystitis Hematuria presence: with hematuria Qualified Code(s): N30.01 - Acute cystitis with hematuria (2) Hypoalbuminemia SNOMED Code(s): 904239333 Code(s): E88.09 - OTH DISORDERS OF PLASMA-PROTEIN METABOLISM, NEC Status: Acute Current Visit: Yes (3) Blindness of left eye SNOMED Code(s): 331651029 Code(s): H54.40 - BLINDNESS, ONE EYE, UNSPECIFIED EYE Status: Chronic Priority: Low Current Visit: No Qualifiers: Right eye visual impairment category: right - category 2 Qualified Code(s): H54.3 - Unqualified visual loss, both eyes (4) Fall SNOMED Code(s): 5708608, 530390353 Code(s): W19.XXXA - UNSPECIFIED FALL, INITIAL ENCOUNTER Status: Acute Current Visit: No Qualifiers: Encounter type: initial encounter Qualified Code(s): W19.XXXA - Unspecified fall, initial encounter (5) Generalized muscle weakness SNOMED Code(s): 26987543, 99843792 Code(s): M62.81 - MUSCLE WEAKNESS (GENERALIZED) Status: Acute Current Visit: No (6) History of seizures SNOMED Code(s): 655686396 Code(s): Z87.898 - PERSONAL HISTORY OF OTHER SPECIFIED CONDITIONS Status: Chronic Priority: Medium Current Visit: No (7) Hypertension SNOMED Code(s): 88174892 Code(s): I10 - ESSENTIAL (PRIMARY) HYPERTENSION Status: Chronic Priority: Medium Current Visit: No Qualifiers: Hypertension type: unspecified Qualified Code(s): I10 - Essential (primary) hypertension (8) Physical deconditioning SNOMED Code(s): 62063017793322 Code(s): R53.81 - OTHER MALAISE Status: Acute Current Visit: No (9) Pulmonary embolus, right SNOMED Code(s): 65850507 Code(s): I26.99 - OTHER PULMONARY EMBOLISM WITHOUT ACUTE COR PULMONALE Status: Acute Priority: High Current Visit: No (10) Recurrent falls while walking SNOMED Code(s): 432734229, 818500502 Code(s): R29.6 - REPEATED FALLS Status: Acute Current Visit: No (11) Severe muscle deconditioning SNOMED Code(s): 688325065 Code(s): R29.898 - [facility] SYMPTOMS AND SIGNS INVOLVING THE MUSCULOSKELETAL SYSTEM Status: Chronic Priority: Medium Current Visit: No (12) Epilepsy SNOMED Code(s): 83826288 Code(s): G40.909 - EPILEPSY, UNSP, NOT INTRACTABLE, WITHOUT STATUS EPILEPTICUS Status: Acute Current Visit: Yes (13) Altered mental status SNOMED Code(s): 396903007 Code(s): R41.82 - ALTERED MENTAL STATUS, UNSPECIFIED Status: Acute Current Visit: Yes (14) Thrombocytopenia SNOMED Code(s): 648359012 Code(s): D69.6 - THROMBOCYTOPENIA, UNSPECIFIED Status: Acute Current V isit: Yes (15) Lymphopenia Status: Acute Current Visit: Yes (16) Hypernatremia SNOMED Code(s): 201615459 Code(s): E87.0 - HYPEROSMOLALITY AND HYPERNATREMIA Status: Acute Current Visit: Yes (17) Hyperchloremia SNOMED Code(s): 20257210 Code(s): E87.8 - OTH DISORDERS OF ELECTROLYTE AND FLUID BALANCE, NEC Status: Acute Current Visit: Yes (18) Dysphagia SNOMED Code(s): 85215373, 881205462 Code(s): R13.10 - DYSPHAGIA, UNSPECIFIED Status: Acute Current Visit: Yes - Problem List Review Problem List Initiated/Reviewed/Updated: Yes - Assessment Assessment:: 08/05/20 79 yo male presents to ED via [facility] for worsening confusion, fever, and generalized weakness Also note a history of coffee ground stools at SNF In ED patient will nod yes or no but mumbles incomprehensive answers to questions UA shows UTI Sepsis criteria: UIT, Afebrile in ED, Leukocytosis, Not tachypneic or tachycardic Does not meet sepsis criteria Labs: WBC 13.46 Hgb 15.1 Neutrophils 83% Sodium 148 Potassium 4.4 Creatinine 1.2 GFR 59 CRP 17.5 D-Dimer 3.39 Lactic acid 1.5 Urine cultures and blood cultures ordered Started on rocephin in ED - continue IV 1L bolus given in ED PLAN IV fluids as ordered PRN antiemetics Tylenol for fevers Continue IV Rocephin Urine cultures and blood cultures pending PT/OT CM/SW for discharge planning NPO for now until nursing swallow screen Bedrest for now Phenytoin level pending Lovenox 1mg/kg No acute concerns 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 Tylenol PRN for fever Trend temperature and panculture if febrile Discontinue Lovenox Start Xarelto Continue dysphagia diet Continue speech therapy Prealbumin level Vitamin levels Dietary consult Continue phenytoin and primidone D5LR 1L bolus D5LR at 125ml/hr Continue to hold lisinopril Patient will remain admitted for anticoagulation, fluid restriction stabilize electrolytes and vital signs monitored sedation as well as PT OT evaluation. 08/07/20 Slept through the night Has not complained to nursing about anything Stools are no longer loose On room air pulse ox is been greater than 90% Vital signs trend Blood pressure 85 206/40 9-61 T-max 99.3 Heart rate 72 to 80 bpm Pulse ox greater than 90% on room air Lab results WBC down from 11.42-8.87 Platelets stable at 162 Sodium down from 153 251 Chloride down from 77-1 15 Phosphate down from 3.1-2.3 Magnesium down from 2.1-1.8 Procalcitonin from 08/05+ at 0.2 Blood cultures negative x2 days - Plan Plan:: UTI (urinary tract infection) Thrombocytopenia/Lymphopenia Rocephin day 3 Follow-up on cultures from admission Discontinue IV fluids once tolerating p.o. Tylenol PRN for fever Trend temperature and panculture if febrile Pulmonary embolus, right Continue Xarelto Dysphagia Continue dysphagia diet Continue speech therapy Fall Altered mental status Generalized muscle weakness Severe muscle deconditioning Recurrent falls while walking Hypoalbuminemia Prealbumin level Vitamin levels Dietary consult Epilepsy Continue phenytoin and primidone Hypernatremia Hyperchloremia D5LR at 125ml/hr Hypertension Continue to hold lisinopril CODE STATUS: DNR/DNI PROPHYLAXIS DVT: Xarelto GI: Not indicated DISPOSITION: Patient will remain admitted for anticoagulation, fluid restriction stabilize electrolytes and vital signs monitored sedation as well as PT OT evaluation.
[2020-08-07] MEDS: cefTRIAXone 1 GM in Sodium Chloride 0.9% 100 ML IV SCH (17:28)
[2020-08-07] MEDS: Phenytoin 30 MG Cap.ER PO SCH (17:29)
[2020-08-08] MEDS: Dextrose 5%-Lactated Ringers 1,000 ML IV SCH (05:15)
[2020-08-08] MEDS: Primidone 250 MG Tab PO SCH (08:50)
[2020-08-08] MEDS: Rivaroxaban 15 MG Tab PO SCH (08:50)
[2020-08-08] MEDS: Phenytoin 100 MG Cap.ER PO SCH (08:50)
[2020-08-08] MEDS ORDERED: Cholecalciferol (Vitamin D3) 5,000 UNIT Tab PO SCH (09:00)
[2020-08-08] MEDS ORDERED: Folic Acid 1 MG Tab PO SCH (09:00)
[2020-08-08] MEDS ORDERED: Cyanocobalamin (Vitamin B12) 1,000 MCG Tab PO SCH (09:00)
[2020-08-08] MEDS ORDERED: Magnesium Oxide 400 MG Tab PO ONE (10:26)
--- NOTE | 2020-08-08 10:52 | PCM.DCSUM1 ---
Discharge Summary - Hospital Course HPI Initial Comments: Patient is a 79-year-old male who presents via [facility] ambulance due to generalized weakness and decreased mentation. He was seen 3 days prior for similar symptoms and nothing was found during that work-up. Per the ED provider staff report that the patient was admitted there on July 21 and he has been slowly deteriorating. He was able to ambulate on admission but today he is not even able to hold his head up. They note he had a fever of 102 F yesterday and there were concerns of a possible watery coffee-ground stools, although this was after a suppository. ED provider notes that the patient was alert enough to make eye contact and would shake his head yes or no. They report he will attempt to answer questions but is quite garbled. There is no focal neurological abnormalities noted. In the ED temp is 97 2. Pulse 81. Respirations 18. Blood pressure 96/69. Oxygen saturation 94% on room air. Twelve-lead EKG is obtained showing a sinus rhythm at 77 bpm with no obvious ischemia or acute changes noted. Labs are obtained showing leukocytosis at 13.46 with 83% neutrophils. Sodium is high at 148. Potassium 4.4. Creatinine is 1.2 with GFR 59. CRP 17.5. Albumin is low at 3.1. D-dimer is obtained and is 3.39. Troponin is negative at less than 0.017. LDH is 206. Ferritin is 285. Magnesium 2.4. Lactic acid is 1.5. UA is obtained and shows concentrated urine with trace protein, trace intact blood, positive nitrite, 2+ bilirubin, 5-10 RBCs, 0-5 WBCs, and many bacteria noted. SARS COVID screen is negative. Nursing notes that the patient did have a bowel movement and it was brown and normal-looking with no signs of melena or hematochezia. He started on 2 g of Rocephin for his apparent UTI. Due to elevated d-dimer CTA is obtained showing several small pulmonary emboli on the right side. Bibasilar atelectasis worse on the right is also noted. Head CT is obtained showing senescent change catheters are noted on both sides which are extra-axial in location and stable and nothing acute is appreciated. Chest x-ray shows nothing acute. 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 He resides at [facility]. His PCP is Dr. Hansen. Diagnosis: Stroke: No - Discharge Data Discharge Date: 08/08/20 (Admit date: 08/05/20) Discharge Disposition: DC/Tfer to SNF 03 Condition: Good - Referral to Home Health Primary Care Physician: Lamont Hansen MD - Discharge Diagnosis/Problem(s) (1) Generalized weakness SNOMED Code(s): 23197163 ICD Code: R53.1 - WEAKNESS Status: Acute Priority: High Current Visit: No (2) Mental status, decreased SNOMED Code(s): 333907379 ICD Code: R41.82 - ALTERED MENTAL STATUS, UNSPECIFIED Status: Acute Priority: High Current Visit: No (3) Pulmonary embolus, right SNOMED Code(s): 57577389 ICD Code: I26.99 - OTHER PULMONARY EMBOLISM WITHOUT ACUTE COR PULMONALE Status: Acute Priority: High Current Visit: No (4) UTI (urinary tract infection) SNOMED Code(s): 42390457 ICD Code: N39.0 - URINARY TRACT INFECTION, SITE NOT SPECIFIED Status: Acute Priority: High Current Visit: No Qualifiers: Urinary tract infection type: acute cystitis Hematuria presence: with hematuria Qualified Code(s): N30.01 - Acute cystitis with hematuria (5) Blindness of left eye SNOMED Code(s): 569493233 ICD Code: H54.40 - BLINDNESS, ONE EYE, UNSPECIFIED EYE Status: Chronic Priority: Low Current Visit: No Qualifiers: Right eye visual impairment category: right - category 2 Qualified Code(s): H54.3 - Unqualified visual loss, both eyes (6) Osteoarthritis of hips, bilateral SNOMED Code(s): 861754070978856 ICD Code: M16.0 - BILATERAL PRIMARY OSTEOARTHRITIS OF HIP Status: Chronic Priority: Low Current Visit: No Qualifiers: Osteoarthritis type: unspecified Qualified Code(s): M16.0 - Bilateral primary osteoarthritis of hip (7) Osteoarthritis of knees, bilateral SNOMED Code(s): 691933592269055 ICD Code: M17.0 - BILATERAL PRIMARY OSTEOARTHRITIS OF KNEE Status: Chronic Priority: Low Current Visit: No Qualifiers: Osteoarthritis type: unspecified Qualified Code(s): M17.0 - Bilateral primary osteoarthritis of knee (8) Severe muscle deconditioning SNOMED Code(s): 102570512 ICD Code: R29.898 - OTH SYMPTOMS AND SIGNS INVOLVING THE MUSCULOSKELETAL SYSTEM Status: Chronic Priority: Medium Current Visit: No (9) Hypertension SNOMED Code(s): 37243462 ICD Code: I10 - ESSENTIAL (PRIMARY) HYPERTENSION Status: Chronic Priority: Medium Current Visit: No Qualifiers: Hypertension type: unspecified Qualified Code(s): I10 - Essential (primary) hypertension (10) History of seizures SNOMED Code(s): 284111554 ICD Code: Z87.898 - PERSONAL HISTORY OF OTHER SPECIFIED CONDITIONS Status: Chronic Priority: Medium Current Visit: No (11) Elevated d-dimer SNOMED Code(s): 494552113 ICD Code: R79.89 - OTHER SPECIFIED ABNORMAL FINDINGS OF BLOOD CHEMISTRY Status: Acute Priority: High Current Visit: No - Patient Summary/Data Consults: Consultations 08/05/20 14:48 Consult to Case Management/Airport Ramp Agent [CONS] Routine Consult to Spiritual Care [CONS] Routine OT Evaluation and Treatment [CONS] Routine PT Evaluation and Treatment [CONS] Routine 08/05/20 15:16 Consult to Area Loss Prevention Manager [CONS] Routine Labs Pending at D/C: Urine culture - preliminary from microbiology showed good susceptibility to Rocephin and Keflex. Recommended Follow-up Testing/Procedures: Follow-up with PCP within 7-10 days of discharge -Recommend repeat CBC, CMP, magnesium at that visit -Recommend re-check vitamin D, folic acid, and vitamin B12 in 1-2 months Hospital Course: Vinh was admitted to the hospital floor due to UTI, weakness, and right-sided pulmonary embolus. He was started on twice daily Lovenox and later transitioned to Xarelto. He should take 15 mg twice daily Xarelto for a total of 21 days and then transition to once daily 20 mg Xarelto. He was also started on Rocephin in the ED and this continued on the floor. This was switched to p.o. Keflex 500 mg twice daily for total of 7 days of IV antibiotic treatment. Urine cultures were not formally back although per microbiology urine was showing good susceptibilities to both Keflex and Rocephin. He received IV fluids. White count did trend down. Procalcitonin was 0.20. He had no fevers. Blood cultures remain negative. He was noted to be hypernatremic which initially elev ated on admission and then came down to 147. Phenytoin level was obtained and was 13.7. Kidney function remained stable. Lactic acid was within normal limits. Magnesium was 1.7 and this was supplemented prior to discharge. He will be discharged on 4 more days of 400 mg daily magnesium. Vitamin B12 was obtained and was quite low at 174. This will be supplemented at discharge with 1mg daily. Vitamin D was also low at 10.0 and will be supplemented at discharge with 5000 units daily. Folate was very low at 3.3 and this will be supplemented with 1mg at discharge. COVID-19 screen was obtained as requirement of assisted facility and was negative prior to discharge. He will be discharged back to [facility] today. Recommend follow-up with primary care provider within 7 to 10 days of discharge. Recommend recheck CBC, CMP, magnesium at that appointment. Recommend recheck vitamin D, B12, and folic acid within 1 to 2 months of discharge. As mentioned patient was started on DVT treatment protocol for Xarelto and this will to be transitioned after 21 days. Recommend continue PT at [facility]. All other home medications were continued at discharge. - Patient Instructions Diet, Other: NDD3 diet with thickened liquids Activity: As Tolerated Driving: Do Not Drive Notify Provider of: Fever, Increased Pain, Nausea and/or Vomiting Other/Special Instructions: Follow-up with primary care provider withint 7-10 days of discharge. Resume home medications as directed. You were started on xarelto (a blood thinner) for your pulmonary embolism. You should take this twice daily for the next 19 days and then switch to 20mg daily. Your primary care provider can assist you with this dosing. Your magnesium was low and was supplemented here. You will be prescribed a few more days of this on discharge. Your primary care provider should follow-up with this. Take all new medications as prescribed. You were prescirbed and antibiotic. Take this until it is gone, even if you feel 100% better. Continue PT/OT at [facility]. Should symtpoms return or worsen, contact primary care provider or return to the Emergency Department. - Discharge Plan *PRESCRIPTION DRUG MONITORING PROGRAM REVIEWED*: No *COPY OF PRESCRIPTION DRUG MONITORING REPORT IN PATIENT LORELEI: No Prescriptions/Med Rec: Folic Acid 1 mg PO DAILY #20 tablet cephALEXin [Keflex] 500 mg PO BID #6 capsule Magnesium Oxide [Magnesium] 400 mg PO DAILY #4 tablet Cyanocobalamin (Vitamin B12) [Vitamin B12] 1,000 mcg PO DAILY #20 tablet Cholecalciferol (Vitamin D3) [Vitamin D3] 5,000 unit PO DAILY #20 tablet Rivaroxaban [Xarelto] 15 mg PO BID #38 tablet Home Medications: Home Meds Phenytoin Sodium Extended [Dilantin] 100 mg PO QAM 07/05/20 [History] Primidone [Mysoline] 250 mg PO BID 07/05/20 [History] lisinopriL [Lisinopril] 20 mg PO DAILY 07/05/20 [History] Phenytoin Sodium Extended [Dilantin] 150 mg PO QPM 07/09/20 [History] Cholecalciferol (Vitamin D3) [Vitamin D3] 5,000 unit PO DAILY #20 tablet 08/08/20 [Rx] Cyanocobalamin (Vitamin B12) [Vitamin B12] 1,000 mcg PO DAILY #20 tablet 08/08/20 [Rx] Folic Acid 1 mg PO DAILY #20 tablet 08/08/20 [Rx] Magnesium Oxide [Magnesium] 400 mg PO DAILY #4 tablet 08/08/20 [Rx] Rivaroxaban [Xarelto] 15 mg PO BID #38 tablet 08/08/20 [Rx] cephALEXin [Keflex] 500 mg PO BID #6 capsule 08/08/20 [Rx] Oxygen Therapy Mode: Room Air Patient Handouts: Rivaroxaban oral tablets, Sepsis, Diagnosis, Adult, Pulmonary Embolism, Venous Thromboembolism Prevention Referrals: Lamont Hansen MD [Primary Care Provider] - 08/15/20 8:15 am (Please follow up with Dr. Hansen on August 15 at 8:15.) - Discharge Summary/Plan Comment DC Time >30 min.: Yes (60 mins ) - General Info Date of Service: 08/08/20 Admission Dx/Problem (Free Text: Admission Diagnosis/Problem Admission Diagnosis/Problem UTI, Urinary tract infectious disease Functional Status: Reports: Pain Controlled, Tolerating Diet, Urinating. Denies: Ambulating, New Symptoms - Review of Systems General: Reports: No Symptoms, Weakness. Denies: Fever, Fatigue, Malaise, Chills HEENT: Reports: No Symptoms Pulmonary: Reports: No Symptoms. Denies: Shortness of Breath, Cough Cardiovascular: Reports: No Symptoms. Denies: Chest Pain Gastrointestinal: Reports: No Symptoms. Denies: Abdominal Pain, Constipation, Diarrhea, Nausea, Vomiting Genitourinary: Reports: No Symptoms. Denies: Pain Musculoskeletal: Reports: No Symptoms Skin: Reports: No Symptoms. Denies: Cyanosis Neurological: Reports: Difficulty Walking, Weakness, Gait Disturbance Psychiatric: Reports: No Symptoms - Patient Data Vitals - Most Recent: Last Vital Signs Temp 99.0 F 08/08/20 08:25 Pulse 64 08/08/20 08:25 Resp 20 08/08/20 08:25 BP 129/64 08/08/20 08:25 Pulse Ox 93 L 08/08/20 08:25 Orthostatic Blood Pressure [ 93/49 Sitting] Orthostatic Blood Pressure [ 85/61 Supine] Weight - Most Recent: 151 lb 11.2 oz I&O - Last 24 hours: Intake & Output 08/07/20 08/08/20 08/08/20 22:59 06:59 14:59 Intake Total 2205 1485 Output Total 724 Balance 1481 1485 Lab Results - Last 24 hrs: Laboratory Results - last 24 hr 08/08/20 08/08/20 08/08/20 Range/Units 06:10 06:10 06:10 WBC 7.06 (4.23-9.07) K/mm3 RBC 4.10 L (4.63-6.08) M/mm3 Hgb 12.2 L (13.7-17.5) gm/dl Hct 39.8 L (40.1-51.0) % MCV 97.1 H (79.0-92.2) fl MCH 29.8 (25.7-32.2) pg MCHC 30.7 L (32.2-35.5) g/dl RDW Std Deviation 48.6 H (35.1-43.9) fL Plt Count 159 L (163-337) K/mm3 MPV 12.7 H (9.4-12.3) fl Neut % (Auto) 73.6 H (34.0-67.9) % Lymph % (Auto) 12.0 L (21.8-53.1) % Bond % (Auto) 11.5 (5.3-12.2) % Eos % (Auto) 2.5 (0.8-7.0) Baso % (Auto) 0.1 (0.1-1.2) % Neut # (Auto) 5.19 (1.78-5.38) K/mm3 Lymph # (Auto) 0.85 L (1.32-3.57) K/mm3 Bond # (Auto) 0.81 (0.30-0.82) K/mm3 Eos # (Auto) 0.18 (0.04-0.54) K/mm3 Baso # (Auto) 0.01 (0.01-0.08) K/mm3 Sodium 147 H (136-145) mEq/L Potassium 4.0 (3.5-5.1) mEq/L Chloride 112 H (98-107) mEq/L Carbon Dioxide 30 (21-32) mEq/L Anion Gap 9.0 (5-15) BUN 15 (7-18) mg/dL Creatinine 0.6 L (0.7-1.3) mg/dL Est Cr Clr Drug Dosing 98.76 mL/min Estimated GFR (MDRD) > 60 (>60) mL/min BUN/Creatinine Ratio 25.0 H (14-18) Glucose 125 H (83-115) mg/dL Calcium 7.9 L (8.5-10.1) mg/dL Phosphorus 2.4 L (2.6-4.7) mg/dL Magnesium 1.7 L (1.8-2.4) mg/dl Vitamin B12 174 L (193-986) pg/ml Vitamin D 25-Hydroxy 10.0 L (30.0-100.0) ng/ml Folate 3.3 L (8.6-58.9) ng/mL COVID-19 ([facility]) (NEGATIVE) 08/08/20 Range/Units 09:23 WBC (4.23-9.07) K/mm3 RBC (4.63-6.08) M/mm3 Hgb (13.7-17.5) gm/dl Hct (40.1-51.0) % MCV (79.0-92.2) fl MCH (25.7-32.2) pg MCHC (32.2-35.5) g/dl RDW Std Deviation (35.1-43.9) fL Plt Count (163-337) K/mm3 MPV (9.4-12.3) fl Neut % (Auto) (34.0-67.9) % Lymph % (Auto) (21.8-53.1) % Bond % (Auto) (5.3-12.2) % Eos % (Auto) (0.8-7.0) Baso % (Auto) (0.1-1.2) % Neut # (Auto) (1.78-5.38) K/mm3 Lymph # (Auto) (1.32-3.57) K/mm3 Bond # (Auto) (0.30-0.82) K/mm3 Eos # (Auto) (0.04-0.54) K/mm3 Baso # (Auto) (0.01-0.08) K/mm3 Sodium (136-145) mEq/L Potassium (3.5-5.1) mEq/L Chloride (98-107) mEq/L Carbon Dioxide (21-32) mEq/L Anion Gap (5-15) BUN (7-18) mg/dL Creatinine (0.7-1.3) mg/dL Est Cr Clr Drug Dosing mL/min Estimated GFR (MDRD) (>60) mL/min BUN/Creatinine Ratio (14-18) Glucose (83-115) mg/dL Calcium (8.5-10.1) mg/dL Phosphorus (2.6-4.7) mg/dL Magnesium (1.8-2.4) mg/dl Vitamin B12 (193-986) pg/ml Vitamin D 25-Hydroxy (30.0-100.0) ng/ml Folate (8.6-58.9) ng/mL COVID-19 ([facility]) Negative (NEGATIVE) GERI Results - Last 24 hrs: Microbiology 08/05/20 12:03 Aerobic Blood Culture - Preliminary Blood - Venous NO GROWTH AFTER 2 DAYS Anaerobic Blood Culture - Preliminary NO GROWTH AFTER 2 DAYS 08/05/20 12:20 Aerobic Blood Culture - Preliminary Blood - Venous - Lab Draw NO GROWTH AFTER 2 DAYS Anaerobic Blood Culture - Preliminary NO GROWTH AFTER 2 DAYS Med Orders - Current: Current Medications Acetaminophen (Tylenol) 650 mg PO Q4H PRN PRN Reason: Pain (Mild 1-3)/fever Cholecalciferol (Vitamin D3) 5,000 unit PO DAILY ONUR Last Admin: 09/14/20 08:50 Dose: 5,000 unit Documented by: Cyanocobalamin (Vitamin B12) 1,000 mcg PO DAILY [facility] Last Admin: 08/08/20 08:50 Dose: 1,000 mcg Documented by: Folic Acid (Folic Acid) 1 mg PO DAILY [facility] Last Admin: 08/08/20 08:50 Dose: 1 mg Documented by: Ceftriaxone Sodium 1 gm/ (Sodium Chloride) 100 mls @ 200 mls/hr IV Q24H [facility] Last Admin: 08/07/20 17:28 Dose: 200 mls/hr Documented by: Dextrose/Lactated Ringer's (Dextrose 5%-Lactated Ringers) 1,000 mls @ 125 mls/hr IV ASDIRECTED [facility] Last Admin: 08/08/20 05:15 Dose: 125 mls/hr Documented by: Ondansetron HCl (Zofran) 4 mg IV Q6H PRN PRN Reason: Nausea/Vomiting Phenytoin Sodium (Phenytoin) 100 mg PO QAM [facility] Last Admin: 08/08/20 08:50 Dose: 100 mg Documented by: Phenytoin Sodium (Phenytoin) 100 mg PO QPM [facility] Last Admin: 08/07/20 17:29 Dose: 100 mg Documented by: Phenytoin Sodium (Dilantin) 60 mg PO QPM [facility] Last Admin: 08/07/20 17:29 Dose: 60 mg Documented by: Primidone (Mysoline) 250 mg PO BID [facility] Last Admin: 08/08/20 08:50 Dose: 250 mg Documented by: Rivaroxaban (Xarelto) 15 mg PO BID [facility] Last Admin: 08/08/20 08:50 Dose: 15 mg Documented by: Sodium Chloride (Saline Flush) 10 ml FLUSH ASDIRECTED PRN PRN Reason: Keep Vein Open Last Admin: 08/05/20 11:21 Dose: 10 ml Documented by: Discontinued Medications Enoxaparin Sodium (Lovenox) 70 mg SUBCUT Q12HR [facility] Last Admin: 08/06/20 08:38 Dose: 70 mg Documented by: Sodium Chloride (Normal Saline) 1,000 mls @ 999 mls/hr IV BOLUS ONE; Protocol Stop: 08/05/20 12:14 Last Admin: 08/05/20 11:21 Dose: 999 mls/hr Documented by: Ceftriaxone Sodium 2 gm/ (Sodium Chloride) 100 mls @ 200 mls/hr IV ONETIME ONE Stop: 08/05/20 13:35 Last Admin: 08/05/20 13:27 Dose: 200 mls/hr Documented by: Sodium Chloride (Normal Saline) 1,000 mls @ 200 mls/hr IV ONETIME ONE Stop: 08/05/20 18:32 Last Admin: 08/05/20 14:01 Dose: 200 mls/hr Documented by: Sodium Chloride (Normal Saline) 100 mls @ 75 mls/hr IV ASDIRECTED [facility] Last Admin: 08/05/20 13:45 Dose: 75 mls/hr Documented by: Ceftriaxone Sodium 1 gm/ (Sodium Chloride) 100 mls @ 200 mls/hr IV Q24H [facility] Last Admin: 08/05/20 16:55 Dose: Not Given Documented by: Lactated Ringer's (Ringers, Lactated) 1,000 mls @ 75 mls/hr IV ASDIRECTED [facility] Last Admin: 08/06/20 09:37 Dose: 75 mls/hr Documented by: Dextrose/Lactated Ringer's (Dextrose 5%-Lactated Ringers) 1,000 mls @ 999 mls/hr IV ASDIRECTED [facility] Stop: 08/06/20 18:46 Last Admin: 08/06/20 17:56 Dose: 999 mls/hr Documented by: Iopamidol (Isovue-370 (76%)) 100 ml IVPUSH ONETIME ONE Stop: 08/05/20 13:45 Last Admin: 08/05/20 13:45 Dose: 100 ml Documented by: Magnesium Oxide (Magnesium Oxide) 800 mg PO ONETIME ONE Stop: 08/08/20 10:27 Phenytoin Sodium (Phenytoin) 150 mg PO QPM [facility] Last Admin: 08/05/20 18:21 Dose: 100 mg Documented by: - Exam Quality Assessment: Reports: DVT Prophylaxis General: Reports: Alert, Cooperative, No Acute Distress HEENT: Reports: Pupils Equal, Pupils Reactive, Mucous Membr. Moist/[place]: Reports: Supple, Trachea Midline Lungs: Reports: Clear to Auscultation, Normal Respiratory Effort, Decreased Breath Sounds Cardiovascular: Reports: Regular Rate, Regular Rhythm GI/Abdominal Exam: Normal Bowel Sounds, Soft, Non-Tender (Male) Exam: Deferred Rectal (Males) Exam: Deferred Back Exam: Reports: Normal Inspection, Decreased Range of Motion Extremities: Normal Inspection, No Pedal Edema, Limited Range of Motion Skin: Reports: Warm, Dry, Intact Neurological: Reports: No New Focal Deficit Psy/Mental Status: Reports: Alert
== END 2020-08-08 13:07 | DRG 689 ==
LOC: JD.ED 10:50 → JD.MS 14:41
PROVIDERS: ADMIT Internal Medicine; ATTEND Internal Medicine
DX: N30.01 Acute cystitis with hematuria (principal); N39.0 Urinary tract infection, site not specified; R53.1 Weakness; I26.99 Other pulmonary embolism without acute cor pulmonale; E87.0 Hyperosmolality and hypernatremia; G40.909 Epilepsy, unspecified, not intractable, without status epilepticus; H54.40 Blindness, one eye, unspecified eye; H54.3 Unqualified visual loss, both eyes; M16.0 Bilateral primary osteoarthritis of hip; M17.0 Bilateral primary osteoarthritis of knee; Z20.828 Contact with and (suspected) exposure to other viral communicable diseases; R29.898 Other symptoms and signs involving the musculoskeletal system; I10 Essential (primary) hypertension; R79.89 Other specified abnormal findings of blood chemistry; R41.82 Altered mental status, unspecified; Z66 Do not resuscitate; E87.8 Other disorders of electrolyte and fluid balance, not elsewhere classified; R13.10 Dysphagia, unspecified; E88.09 Other disorders of plasma-protein metabolism, not elsewhere classified; D69.6 Thrombocytopenia, unspecified; D72.810 Lymphocytopenia; Z79.899 Other long term (current) drug therapy; Z11.59 Encounter for screening for other viral diseases
CPT/HCPCS: 36415; 70450; 71045; 71275; 80053; 80185; 81001; 82728; 83605; 83615; 83735; 84145; 84484; 85007; 85027; 85379; 85610; 86140; 87040 ×2; 87086; 87088; 87186; 93005; 96361; 96365; 99285; J0696; J7030 ×2; J7050 ×2; Q9967; U0002; 51701; 80048; 82306; 82607; 82746; 84100; 85025; 87641; 93010; 97162-GP; 99222; 99232; 99239; A9270-GY; J1650; J7120; J7121